=== PATIENT | male | born 1960 | race Caucasian/White ===

== ENCOUNTER 2018-01-14 07:09 | Inpatient (IN) | payer OTHER ==
[2018-01-14 07:21] VITALS: BMI 25.0
--- NOTE | 2018-01-14 07:41 | PDOC ---
History of Present Illness - General History Source: Patient Exam Limitations: No Limitations - History of Present Illness Initial Comments: 01/14/18 07:30 56yo M with history of COPD and smoking 1ppd for about 30 years who developed general malaise about 2 weeks ago. At that time he started to have some generalized aches most notability in his stress-bearing joints and developed a productive cough with some noted streaks of blood. Pt reports having some slight shortness of breath in general, but not in distress. Pt reported thinking his initial symptoms were a viral infection, however due to it's sustained course he wanted to come in for further evaluation. Pt reports smoking both marijuana and tobacco for the past 30 years around 1 pack per day. He also reports being in penitentiary recently and underwent a flu vaccine and PPD testing which was negative. Pt denies any overt sick contacts. Pt also endorses developing two sensitive to palpation lumps on his anterior chest wall around this time which he noticed while in the shower. Pt denies any rhinorrhea, sore throat, CP/discomfort, abdominal pain, dysuria, polyuria, night sweats, recent weight changes. MHx: COPD Surg: R inguinal hernia repair FamHx: HTN in both parents, Lung Ca in grandmother Soc: + smoking tobacco and marijuana as above, occasional alcohol Allergies: NKDA Meds/supplements/nutrients: None <Garcia Delgado - Last Filed: 01/14/18 10:09> - General History Source: Patient Exam Limitations: No Limitations <Ananda Watson - Last Filed: 01/14/18 10:29> - General Chief Complaint: Cold Symptoms Stated Complaint: FLU-LIKE SYMPTOMS Time Seen by Provider: 01/14/18 07:28 Past History - Past Medical History COPD: Yes - Surgical History Abdominal Surgery: Yes (rt ing hernia) - Family Disease History Family Disease History: Heart Disease: Father, Mother, Other: Grandparents ( Lung Ca) - Suicide/Smoking/Psychosocial Hx Smoking History: Current every day smoker Have you smoked in the past 12 months: Yes Number of Cigarettes Smoked Daily: 20 Information on smoking cessation initiated: Yes 'Breaking Loose' booklet given: 01/14/18 Hx Alcohol Use: No Drug/Substance Use Hx: Yes (renard) Substance Use Type: None <Garcia Delgado - Last Filed: 01/14/18 10:09> <Ananda Watson - Last Filed: 01/14/18 10:29> - Past Medical History Allergies/Adverse Reactions: Allergies Allergy/AdvReac Type Severity Reaction Status Date / Time No Known Allergies Allergy Verified 01/14/18 07:15 Review of Systems - Review of Systems Constitutional: Yes: Malaise, Weight Stable. No: Chills, Fever, Loss of Appetite, Night Sweats HEENTM: Yes: See HPI Respiratory: Yes: See HPI, Cough Cardiac (ROS): No: Chest Pain, Edema, Palpitations ABD/GI: No: Constipated, Diarrhea, Nausea, Vomiting : No: Dysuria, Frequency Integumentary: Yes: See HPI, Lumps. No: Change in Color Hematologic/Lymphatic: No: Blood Clots, Easy Bleeding <Garcia Delgado - Last Filed: 01/14/18 10:09> - Review of Systems Able to Perform ROS?: Yes Comments:: A complete review of 10 out of 10 review of systems is taken and is negative apart from what is previously mentioned below and in the HPI. <Ananda Watson - Last Filed: 01/14/18 10:29> *Physical Exam - Vital Signs Last Vital Signs Temp Pulse Resp BP Pulse Ox 98.3 F 100 H 18 143/80 100 01/14/18 07:16 01/14/18 07:16 01/14/18 07:16 01/14/18 07:16 01/14/18 07:16 - Physical Exam Comments: 01/14/18 08:03 GEN: NAD, awake, alert and oriented x3, laying in bed HEENT: EOMI, LYNDA, sclera anicteric, no erythema or plaques noted in the posterior oropharynx, nasal turbinates normal NECK: No JVD, no lymphadenopathy appreciated, no thyromegaly appreciated LUNGS: Distant sounds with some wheezing noted bibasillary, no rhonchi, no rales , on RA 100% SpO2 CARDIAC: Tachycardic with regular rhythm, no murmurs appreciated, S1 and S2 normal CHEST: Skin intact, no skin changes noted, R moveable rubber sensitive mass noted 8'clock near areola, L moveable rubbery sensitive mass noted 3 o'clock position, No axillary lymphadenopathy appreciated ABD: Soft, normoactive BS, no bruits auscultated, nontender, nondistended, no guarding, no inguinal lymphadenopathy appreciated EXT: No edema, warm, 2+ DP pulses NEURO: Nonfocal, normal speech, facial symmetry at base, gait not observed <Garcia Delgado - Last Filed: 01/14/18 10:09> - Vital Signs Last Vital Signs Temp Pulse Resp BP Pulse Ox 98.3 F 100 H 18 143/80 100 01/14/18 07:16 01/14/18 07:16 01/14/18 07:16 01/14/18 07:16 01/14/18 07:16 <Ananda Watson - Last Filed: 01/14/18 10:29> Heart Score/ECG Review #1 ECG reviewed & interpreted by me at: 08:29 General ECG Interpretation: Sinus Rhythm, Normal Rate, Normal Intervals, No acute ischemic changes 01/14/18 08:29 [id number] normal axis, normal R wave progression, <Garcia Delgado - Last Filed: 01/14/18 10:09> ED Treatment Course - LABORATORY CBC & Chemistry Diagram: 01/14/18 08:02 01/14/18 08:02 <Garcia Delgado - Last Filed: 01/14/18 10:09> - LABORATORY CBC & Chemistry Diagram: 01/14/18 08:02 01/14/18 08:02 - Medications Given in the ED: ED Medications Discontinued Medications Generic Name Dose Route Start Last Admin Trade Name Freq PRN Reason Stop Dose Admin Albuterol Sulfate 1 amp 01/14/18 07:53 01/14/18 08:12 Ventolin 0.083% Nebulizer Soln - NEB 01/14/18 07:54 1 amp ONCE ONE Administration <Ananda Watson - Last Filed: 01/14/18 10:29> Medical Decision Making - Medical Decision Making 01/14/18 07:47 57yo M with history of COPD who reports some productive cough with hemoptysis and generalized body aches Ddx: r/o URI including flu despite end of season this year, r/o lung Ca, r/o TB --cbc --cmp --CXR pa and lat --EKG --Trop I x1 --Albuterol tx x1 for wheezing heard on auscultation 01/14/18 08:34 EKG NSR without any acute changes noted CBC normal WBC 11,000's 01/14/18 08:40 CXR - RUL infiltrate with R hilar adenopathy noted with some chronic degenerative changes noted Given risk factors for TB in setting of hemoptysis and imprisonment will consult ID for guidance --BCx --AFB sputum --Iso Precautions 01/14/18 09:[address] Castro who accepted pt for r/o TB admission --Consulted Dr. Velazquez for ID guidance 01/14/18 10:[address] Velazquez --Requests vanc/zosyn administration --Requests HIV testing <Garcia Delgado - Last Filed: 01/14/18 10:09> - Medical Decision Making The patient is a 57 year old male with a significant past medical history of COPD who presents to the emergency department complaining of productive cough which started approximately 3 days ago. Will take labs, check Troponin, ECG, and take a Chest scan. <Ananda Watson - Last Filed: 01/14/18 10:29> *DC/Admit/Observation/Transfer - Discharge Dispostion Admit: Yes <Garcia Delgado - Last Filed: 01/14/18 10:09> <Ananda Watson - Last Filed: 01/14/18 10:29> Diagnosis at time of Disposition: Hemoptysis - Discharge Dispostion Condition at time of disposition: Stable
[2018-01-14] MEDS ORDERED: ALBUTEROL SO4 0.083% IH SOL 2.5 MG/3 ML VIAL.NEB. NEB ONE ×2 (07:53→07:54)
[2018-01-14 08:19] LABS: HEMATOCRIT 39.7 % (35.4-49); MCHC 32.8 g/dl (32.0-35.9); MEAN CELL VOLUME 82.6 fl (80-96); MEAN PLT VOLUME 7.7 fl (7.5-11.1); PLATELET COUNT 405 K/MM3 (134-434); RDW 15.7 % (11.9-15.9); WHITE BLOOD COUNT 11.3 K/mm3 (4.0-10.0)
[2018-01-14 08:38] LABS: ANION GAP 7 (8-16); BILIRUBIN,TOTAL 0.3 mg/dL (0.2-1.0); BLOOD UREA NITROGEN 12 mg/dL (7-18); CALCIUM 8.4 mg/dL (8.5-10.1); CHLORIDE 106 mmol/L (98-107); CO2 25 mmol/L (21-32); CREATININE 0.9 mg/dL (0.7-1.3); GLUCOSE,RANDOM 145 mg/dL (74-106); POTASSIUM 3.9 mmol/L (3.5-5.1); SGOT/AST 11 U/L (15-37); SGPT/ALT 14 U/L (12-78); SODIUM 138 mmol/L (136-145); TOT PROT 6.5 g/dl (6.4-8.2)
[2018-01-14 08:41] LABS: ALK PHOS 106 U/L (45-117)
[2018-01-14] MEDS ORDERED: VANCOMYCIN 1,250 MG in DEXTROSE 5%-WATER - 250 ML IVPB ONE (10:03)
[2018-01-14] MEDS ORDERED: PIPERACILLIN/TAZOB 4.5 GM/100 ML PREMIX BAG IVPB ONE (10:04)
[2018-01-14] MEDS ORDERED: PIPERACILLIN/TAZOB 4.5 GM 4.5 GM in DEXTROSE 5%-WATER 100 ML IVPB ONE (10:15)
--- NOTE | 2018-01-14 10:25 | PDOC ---
Attending Attestation - HPI HPI: 01/14/18 10:29 The patient is a 57 year old male with a significant past medical history of COPD who presents to the emergency department complaining of productive cough which started approximately 3 days ago. The patient reports having an intermittent productive cough with blood streaked sputum. The patient reports having associated symptoms of runny nose, generalized weakness, as well as chest pain and dyspnea which is exacerbated through movement. The patient describes chest tightness occurs sporadically. He also admits to noticing lumps in his breasts 2 weeks ago. The patient reports being in long term recently. The patient denies any significant weight loss, sick contact, immobilization, headache and dizziness. Denies fevers, chills, nausea, vomiting, diarrhea, and constipation. Denies dysuria, frequency, urgency, and hematuria. Allergies: NKA Past surgical history: mandible, left knee, right inguinal hernia Social history: Patient admits to smoking a pack of cigarettes per day. Patient admits to smoking marijuana. No reported alcohol consumption. - Physicial Exam PE: 01/14/18 10:31 Vitals: Triage Vital signs reviewed General Appearance: no acute distress, well nourished well developed, Head: Atraumatic, normocephalic Eyes: Pupils equal reactive round, extraocular movement intact Nose: Nares patent bilaterally;no nasal congestion Throat: Posterior oropharynx without erythema, mucous membranes moist, Neck: Supple;No Nuchal rigidity Chest Wall: Nontender Cardiac: Regular rate and rhythm, no murmurs, no rubs, no gallops, Lungs: Clear to auscultation bilateral, good air movement bilaterally, Abdomen: Soft, nondistended, normal bowel sounds, nontender to palpation Rectal: Exam deferred Extremities: Full range of motion to all extremities, no cyanosis, clubbing, or edema Skin: Warm and dry, no rashes or lesions, no petechiae Psych: normal mood, normal affect <Ananda Watson - Last Filed: 01/14/18 10:29> - Resident Resident Name: Garcia Delgado - ED Attending Attestation I have performed the following: I have examined & evaluated the patient, The case was reviewed & discussed with the resident, I agree w/resident's findings & plan, Exceptions are as noted - Medical Decision Making 01/14/18 10:23 57 years old with several month history of generalized malaise now with hemoptysis cough no weight loss Chest x-ray demonstrated right upper lobe infiltrate given the patient was recently incarcerated with history of hemoptysis we will admit to medicine to rule out TB Vancomycin and Zosyn ordered Infectious disease Dr. Velazquez consulted We'll admit to Dr. Dong for further management. Patient placed on isolation. 01/14/18 14:52 <Chandler Villeda - Last Filed: 01/14/18 14:53>
[2018-01-14] MEDS ORDERED: VANCOMYCIN 1 GRAM (PRE-DOCKED) 1,000 MG/250 ML BAG IVPB ONE (10:34)
[2018-01-14] MEDS ORDERED: PIPERACILLIN/TAZOB 4.5 GM 4.5 GM/100 ML BAG IVPB ONE (12:24)
--- NOTE | 2018-01-14 15:10 | HP ---
Admitting History and Physical - Primary Care Physician PCP: Luiz Castro - Admission History of Present Illness: 57 year old male with a significant past medical history of COPD who presents to the emergency department complaining of productive cough which started approximately 3 days ago. The patient reports having an intermittent productive cough with blood streaked sputum. The patient reports having associated symptoms of runny nose, generalized weakness, as well as chest pain and dyspnea which is exacerbated through movement. The patient describes chest tightness occurs sporadically. He also admits to noticing lumps in his breasts 2 weeks ago. The patient reports being in shelter recently. The patient denies any significant weight loss, sick contact, immobilization, headache and dizziness. Denies fevers, chills, nausea, vomiting, diarrhea, and constipation. Denies dysuria, frequency, urgency, and hematuria. - Past Medical History Pulmonary: Yes: COPD - Smoking History Smoking history: Current every day smoker Have you smoked in the past 12 months: Yes Aproximately how many cigarettes per day: 20 - Alcohol/Substance Use Hx Alcohol Use: No Home Medications - Allergies Allergies/Adverse Reactions: Allergies Allergy/AdvReac Type Severity Reaction Status Date / Time No Known Allergies Allergy Verified 01/14/18 07:15 - Home Medications Home Medications: Ambulatory Orders Albuterol Sulfate Inhaler - [Ventolin Hfa Inhaler -] 1 - 2 inh PO Q4H PRN Physical Examination Vital Signs: Vital Signs Temperature 98.3 F 01/14/18 07:16 Pulse Rate 100 H 01/14/18 07:16 Respiratory Rate 18 01/14/18 07:16 Blood Pressure 143/80 01/14/18 07:16 O2 Sat by Pulse Oximetry (%) 100 01/14/18 07:16 Constitutional: Yes: No Distress HENT: Yes: Atraumatic Neck: Yes: Supple Cardiovascular: Yes: Regular Rate and Rhythm Respiratory: Yes: CTA Bilaterally, Rhonchi Gastrointestinal: Yes: Normal Bowel Sounds Extremities: Yes: WNL Neurological: Yes: Alert, Oriented Labs: CBC, BMP 01/14/18 08:02 01/14/18 08:02 Problem List - Problems (1) Hemoptysis Assessment/Plan: sputum for afb chest ct pulmonary and id consult monitor cbc Code(s): R04.2 - HEMOPTYSIS (2) COPD (chronic obstructive pulmonary disease) Assessment/Plan: duo nebs prn Code(s): J44.9 - CHRONIC OBSTRUCTIVE PULMONARY DISEASE, UNSPECIFIED Assessment/Plan Laboratory Tests 01/14/18 01/14/18 08:02 08:02 WBC 11.3 H RBC 4.80 Hgb 13.0 Hct 39.7 MCV 82.6 MCH 27.0 MCHC 32.8 RDW 15.7 Plt Count 405 MPV 7.7 Sodium 138 Potassium 3.9 Chloride 106 Carbon Dioxide 25 Anion Gap 7 L BUN 12 Creatinine 0.9 Creat Clearance w eGFR > 60 Random Glucose 145 H Calcium 8.4 L Total Bilirubin 0.3 AST 11 L ALT 14 Alkaline Phosphatase 106 Troponin I < 0.02 Total Protein 6.5 Albumin 3.0 L Active Medications Generic Name Dose Route Start Last Admin Trade Name Freq PRN Reason Stop Dose Admin Albuterol/Ipratropium 1 amp 01/15/18 12:00 01/16/18 12:11 Duoneb - NEB Not Given RQID JAYSHREE
--- NOTE | 2018-01-14 16:57 | CON.ID ---
Consult Consult Specialty:: infectious diseases Referred by:: Reason for Consultation:: pneumonia,r/o tb - History of Present Illness Chief Complaint: sob cough weakness History of Present Illness: 56yo M with history of COPD and smoking 1ppd for about 30 years who developed general malaise about 2 weeks ago. At that time he started to have some generalized aches most notability in his stress-bearing joints and developed a productive cough with some noted streaks of blood. Pt reports having some slight shortness of breath in general, but not in distress. patient is homeless and lives in the car,he was also incarcerated for a very brief time and works as construction contractor. He initially did not want to come to the hospital but decided to come in because he was not getting better. Pt reports smoking both marijuana and tobacco for the past 30 years around 1 pack per day. denies he has ever used iv drugs. He also reports being in skilled nursing recently and underwent a flu vaccine and PPD testing which was negative. Pt denies any overt sick contacts. denies any other symptoms - History Source History Provided By: Patient Limitations to Obtaining History: No Limitations - Alcohol/Substance Use Hx Alcohol Use: Yes (OCCASIONAL) - Smoking History Smoking history: Current every day smoker Have you smoked in the past 12 months: Yes Aproximately how many cigarettes per day: 20 Home Medications - Allergies Allergies/Adverse Reactions: Allergies Allergy/AdvReac Type Severity Reaction Status Date / Time No Known Allergies Allergy Verified 01/14/18 07:15 - Home Medications Home Medications: Ambulatory Orders Albuterol Sulfate Inhaler - [Ventolin Hfa Inhaler -] 1 - 2 inh PO Q4H PRN Review of Systems - Review of Systems Constitutional: reports: No Symptoms Eyes: reports: No Symptoms HENT: reports: No Symptoms Neck: reports: No Symptoms Cardiovascular: reports: No Symptoms Respiratory: reports: Hemoptysis, SOB, SOB on Exertion Gastrointestinal: reports: No Symptoms Genitourinary: reports: No Symptoms Musculoskeletal: reports: Muscle Weakness, Other Integumentary: reports: No Symptoms Neurological: reports: No Symptoms Endocrine: reports: No Symptoms Hematology/Lymphatic: reports: No Symptoms Physical Exam Vital Signs: Vital Signs Temperature 97.9 F 01/14/18 16:09 Pulse Rate 84 01/14/18 15:55 Respiratory Rate 16 01/14/18 15:55 Blood Pressure 116/84 01/14/18 15:55 O2 Sat by Pulse Oximetry (%) 97 01/14/18 15:55 Constitutional: Yes: Well Nourished, No Distress, Calm Eyes: Yes: Conjunctiva Clear Cardiovascular: Yes: Regular Rate and Rhythm Respiratory: Yes: Regular, Poor Air Entry (rt side), Rhonchi Gastrointestinal: Yes: Normal Bowel Sounds, Soft Musculoskeletal: Yes: WNL Extremities: Yes: WNL Neurological: Yes: Alert, Oriented Psychiatric: Yes: Alert, Oriented Labs: CBC, BMP 01/14/18 08:02 01/14/18 08:02 Imaging - Results Chest X-ray: Report Reviewed, Image Reviewed Cat Scan: Report Reviewed, Image Reviewed Assessment/Plan looking at the patient and his symptoms and his work history there are couple of things we have to worry about on is TB he is already being worked up for that also if patient has any malignancy or if he is ahving pneumonia r/o tb r/o malignancy pneumonia hemoptysis cough joint pain plan will start patient on abx await for all cx report await for tb test rest continue current mgmt pul going to follow
--- NOTE | 2018-01-14 23:49 | EKG ---
Test Reason : Blood Pressure : / mmHG Vent. Rate : 090 BPM Atrial Rate : 090 BPM P-R Int : 144 ms QRS Dur : 072 ms QT Int : 372 ms P-R-T Axes : 038 -01 072 degrees QTc Int : 455 ms NORMAL SINUS RHYTHM NONSPECIFIC T WAVE ABNORMALITY ABNORMAL ECG WHEN COMPARED WITH ECG OF 14-JUN-2000 09:10, VENT. RATE HAS INCREASED BY 33 BPM Confirmed by FAVIO GROVER MD ([id number]) on 01/14/2018 11:48:45 PM Referred By: Confirmed By:FAVIO GROVER MD
[2018-01-15 08:23] LABS: EOS % 4.2 % (0-4.5); HEMATOCRIT 40.7 % (35.4-49); HEMOGLOBIN 13.5 GM/dL (11.7-16.9); LYMPH % 32.4 % (8-40); MCH 27.5 pg (25.7-33.7); MCHC 33.2 g/dl (32.0-35.9); MEAN CELL VOLUME 82.8 fl (80-96); MEAN PLT VOLUME 8.4 fl (7.5-11.1); MONO % 7.8 % (3.8-10.2); NEUT % 54.6 % (42.8-82.8); PLATELET COUNT 434 K/MM3 (134-434); RBC 4.91 M/mm3 (4.00-5.60); RDW 15.8 % (11.9-15.9); WHITE BLOOD COUNT 7.9 K/mm3 (4.0-10.0)
[2018-01-15 08:40] LABS: ALBUMIN 3.1 g/dl (3.4-5.0); ANION GAP 9 (8-16); BLOOD UREA NITROGEN 14 mg/dL (7-18); CALCIUM 8.9 mg/dL (8.5-10.1); CHLORIDE 105 mmol/L (98-107); CO2 26 mmol/L (21-32); GLUCOSE,RANDOM 99 mg/dL (74-106); POTASSIUM 4.3 mmol/L (3.5-5.1); SODIUM 140 mmol/L (136-145)
[2018-01-15 08:43] LABS: ALK PHOS 107 U/L (45-117); BILIRUBIN,TOTAL 0.5 mg/dL (0.2-1.0); CREATININE 0.7 mg/dL (0.7-1.3); SGOT/AST 10 U/L (15-37); SGPT/ALT 10 U/L (12-78); TOT PROT 6.6 g/dl (6.4-8.2)
--- NOTE | 2018-01-15 11:55 | PN ---
Progress Note (short form) - Note Progress Note: PULMONARY CONSULTATION DICTATED 01/15/18 IMP HEMOPTYSIS R/O BRONCHOGENIC CA,?PNEUMONIA R HILAR FULLNESS R/O CA,ADENOATHY COPD PLAN ABX INHALED BRONCHODILATORS O2 CHEST CT SPUTUM C+S QUANTIFY HEMOPTYSIS POSSIBLE FLEXIBLE BRONCHOSCOPY PENDING CT FINDINGS DR GONZALEZ Problem List - Problems (1) COPD (chronic obstructive pulmonary disease) Code(s): J44.9 - CHRONIC OBSTRUCTIVE PULMONARY DISEASE, UNSPECIFIED (2) Joint pain Code(s): M25.50 - PAIN IN UNSPECIFIED JOINT (3) Pneumonia Code(s): J18.9 - PNEUMONIA, UNSPECIFIED ORGANISM (4) Hemoptysis Code(s): R04.2 - HEMOPTYSIS
--- NOTE | 2018-01-15 13:17 | CONS ---
DATE OF CONSULTATION: 01/15/2018 REFERRING PHYSICIAN: Luiz Castro MD The patient is a 57-year-old white male with past medical history of COPD for approximately 10-15 years with longstanding history of tobacco use 1 pack per day since age 14, currently still smoking, admitted to [facility] with complaint of generalized aches and pains. He also states he has had intermittent hemoptysis for the past 3 months. He did not seek medical attention. He denies any fevers, chills. Does have occasional sweats. Denies any chest pains. He states also that he feels 2 masses under his breasts a He was previously employed as a [employer]. Of note is he was recently in snf and apparently underwent PPD testing which was negative, and he underwent influenza vaccine. He denies any weight loss or night sweats. Patient presented to the emergency room with the above. In the ER, he had a chest x-ray performed which revealed right hilar fullness and a possible right mid-lung field infiltrate. He was placed on broad-spectrum antibiotics. Patient denies any recent travel. There is no history of DVT or PE in the past. PAST MEDICAL HISTORY: Again includes COPD. PAST SURGICAL HISTORY: He denies any surgery. REVIEW OF SYSTEMS: Positive generalized weakness. Positive generalized joint pains. Positive hemoptysis. No chest pain. No palpitations. Positive dyspnea on exertion. No wheezing. No weight loss or night sweats. No abdominal pain. No lower extremity edema. CURRENT MEDICATIONS: Include piperacillin x1. PHYSICAL EXAMINATION: General: The patient is a well-developed, well-nourished male, awake, alert, in no acute distress. Vital Signs: He is afebrile. Blood pressure 132/66, respiratory rate is 18, O2 saturation is 95% on room air. HEENT: Normocephalic, atraumatic. Neck: Supple. Heart: Regular. S1, S2. Chest: A few crackles in the right mid-lung field. Abdomen: Soft. Bowel sounds are positive. Extremities: No cyanosis or edema. LABORATORIES: WBC is 7.9, hemoglobin 13.5, hematocrit 40.7 with a platelet count of 434,000. BUN 14, creatinine 0.7. Chest x-ray as noted earlier. IMPRESSION: 1. Hemoptysis, r/o bronchogenic carcinoma with evidence of right hilar fullness and longstanding history of tobacco use, rule out possible pneumonia. 2. History of chronic obstructive pulmonary disease. PLAN: Broad-spectrum antibiotics, inhaled bronchodilators. CT scan of the chest. Sputum for culture and sensitivity, cytology. Possible flexible bronchoscopy pending results of CAT scan of the chest. ORLY GONZALEZ M.D. BRUNA/[id number] MTDD
--- NOTE | 2018-01-15 15:05 | PN ---
Progress Note, Physician History of Present Illness: feeling better cough less - Current Medication List Current Medications: Active Medications Albuterol/Ipratropium (Duoneb -) 1 amp NEB RQID JAYSHREE - Objective Vital Signs: Vital Signs Temperature 98.2 F 01/14/18 19:00 Pulse Rate 66 01/15/18 07:08 Respiratory Rate 18 01/15/18 07:08 Blood Pressure 132/66 01/15/18 07:08 O2 Sat by Pulse Oximetry (%) 95 01/15/18 07:08 Constitutional: Yes: No Distress, Calm Cardiovascular: Yes: Regular Rate and Rhythm Respiratory: Yes: Regular, Poor Air Entry, Other Gastrointestinal: Yes: Normal Bowel Sounds, Soft Musculoskeletal: Yes: WNL Extremities: Yes: WNL Neurological: Yes: Alert, Oriented Psychiatric: Yes: Alert, Oriented Labs: CBC, BMP 01/15/18 07:05 01/15/18 07:05 Assessment/Plan stilla waiting finall cx results r/o tb r/o malignancy pneumonia hemoptysis cough joint pain plan continue abx await for all cx report await for tb test rest continue current mgmt pul going to follow
--- NOTE | 2018-01-15 18:14 | PN ---
Progress Note, Physician - Current Medication List Current Medications: Active Medications Albuterol/Ipratropium (Duoneb -) 1 amp NEB RQID JAYSHREE - Objective Vital Signs: Vital Signs Temperature 98.2 F 01/14/18 19:00 Pulse Rate 84 01/15/18 10:40 Respiratory Rate 20 01/15/18 10:40 Blood Pressure 120/70 01/15/18 10:40 O2 Sat by Pulse Oximetry (%) 95 01/15/18 07:08 Constitutional: Yes: No Distress HENT: Yes: Atraumatic Neck: Yes: Supple Cardiovascular: Yes: Regular Rate and Rhythm Respiratory: Yes: CTA Bilaterally Gastrointestinal: Yes: Normal Bowel Sounds Extremities: Yes: WNL Neurological: Yes: Alert, Oriented Labs: CBC, BMP 01/15/18 07:05 01/15/18 07:05 Problem List - Problems (1) Hemoptysis Assessment/Plan: sputum for afb chest ct..done a pulmonary and id consult monitor cbc Code(s): R04.2 - HEMOPTYSIS (2) COPD (chronic obstructive pulmonary disease) Assessment/Plan: duo nebs prn Code(s): J44.9 - CHRONIC OBSTRUCTIVE PULMONARY DISEASE, UNSPECIFIED (3) Pneumonia Assessment/Plan: id on board Code(s): J18.9 - PNEUMONIA, UNSPECIFIED ORGANISM
[2018-01-16] MEDS: ALBUTEROL SO4 2.5/IPRATROPIUM 0.5 INH SOL 3 ML VIAL.NEB. NEB SCH ×5 (03:14→19:24)
--- NOTE | 2018-01-16 10:46 | PN ---
Progress Note, Physician History of Present Illness: PULMONARY ALERT,NO DISTRESS,+ COUGH,-HEMOPTYSIS,CHEST CT R HILAR MASS - Current Medication List Current Medications: Active Medications Albuterol/Ipratropium (Duoneb -) 1 amp NEB RQID JAYSHREE Last Admin: 01/16/18 08:03 Dose: Not Given - Objective Vital Signs: Vital Signs Temperature 98.2 F 01/16/18 07:40 Pulse Rate 70 01/16/18 07:40 Respiratory Rate 17 01/16/18 07:40 Blood Pressure 142/83 01/16/18 07:40 O2 Sat by Pulse Oximetry (%) 95 01/16/18 07:40 Constitutional: Yes: Well Nourished, Calm Eyes: Yes: WNL HENT: Yes: WNL Neck: Yes: WNL Cardiovascular: Yes: Regular Rate and Rhythm, S1, S2 Respiratory: Yes: Diminished Gastrointestinal: Yes: Normal Bowel Sounds, Soft Extremities: Yes: WNL Edema: No - ....Imaging Cat Scan: Report Reviewed, Image Reviewed Problem List - Problems (1) COPD (chronic obstructive pulmonary disease) Code(s): J44.9 - CHRONIC OBSTRUCTIVE PULMONARY DISEASE, UNSPECIFIED (2) Joint pain Code(s): M25.50 - PAIN IN UNSPECIFIED JOINT (3) Pneumonia Code(s): J18.9 - PNEUMONIA, UNSPECIFIED ORGANISM (4) Hemoptysis Code(s): R04.2 - HEMOPTYSIS Assessment/Plan IMP HEMOPTYSIS LIKELY BRONCHOGENIC CA R HILAR FULLNESS LIKELY BRONCHOGENIC CA CA COPD PLAN ABX INHALED BRONCHODILATORS O2 QUANTIFY HEMOPTYSIS FLEXIBLE BRONCHOSCOPY IN AM DR GONZALEZ Problem List - Problems (1) COPD (chronic obstructive pulmonary disease) Code(s): J44.9 - CHRONIC OBSTRUCTIVE PULMONARY DISEASE, UNSPECIFIED (2) Joint pain Code(s): M25.50 - PAIN IN UNSPECIFIED JOINT (3) Pneumonia Code(s): J18.9 - PNEUMONIA, UNSPECIFIED ORGANISM (4) Hemoptysis Code(s): R04.2 - HEMOPTYSIS
[2018-01-16 13:58] LABS: INR 1.17 (0.82-1.09); PROTHROMBIN TIME (PATIENT) 13.2 SEC (9.98-11.88)
--- NOTE | 2018-01-16 14:54 | PN ---
Progress Note, Physician History of Present Illness: patient feeling better still with cough afb results negative so far patient for bronch no complaints - Current Medication List Current Medications: Active Medications Albuterol/Ipratropium (Duoneb -) 1 amp NEB RQID [facility] Last Admin: 01/16/18 12:11 Dose: Not Given - Objective Vital Signs: Vital Signs Temperature 97.9 F 01/16/18 14:17 Pulse Rate 72 01/16/18 14:17 Respiratory Rate 19 01/16/18 14:17 Blood Pressure 144/87 01/16/18 14:17 O2 Sat by Pulse Oximetry (%) 96 01/16/18 11:59 Constitutional: Yes: No Distress, Calm Cardiovascular: Yes: Regular Rate and Rhythm Respiratory: Yes: Regular, Poor Air Entry Gastrointestinal: Yes: Normal Bowel Sounds, Soft Musculoskeletal: Yes: WNL Extremities: Yes: WNL Neurological: Yes: Alert, Oriented Psychiatric: Yes: Alert, Oriented Labs: CBC, BMP 01/15/18 07:05 01/15/18 07:05 INR, PTT INR 1.17 (0.82-1.09) H 01/16/18 13:07 Assessment/Plan Problem List - Problems (1) COPD (chronic obstructive pulmonary disease) Code(s): J44.9 - CHRONIC OBSTRUCTIVE PULMONARY DISEASE, UNSPECIFIED (2) Joint pain Code(s): M25.50 - PAIN IN UNSPECIFIED JOINT (3) Pneumonia Code(s): J18.9 - PNEUMONIA, UNSPECIFIED ORGANISM (4) Hemoptysis Code(s): R04.2 - HEMOPTYSIS plan await for hiv continue abx bronch rest as per primary team patient looks better
--- NOTE | 2018-01-16 17:25 | PN ---
Progress Note, Physician - Current Medication List Current Medications: Active Medications Albuterol/Ipratropium (Duoneb -) 1 amp NEB RQID [facility] Last Admin: 01/16/18 12:11 Dose: Not Given - Objective Vital Signs: Vital Signs Temperature 97.9 F 01/16/18 14:17 Pulse Rate 72 01/16/18 14:17 Respiratory Rate 19 01/16/18 14:17 Blood Pressure 144/87 01/16/18 14:17 O2 Sat by Pulse Oximetry (%) 96 01/16/18 11:59 Constitutional: Yes: No Distress HENT: Yes: Atraumatic Neck: Yes: Supple Cardiovascular: Yes: Regular Rate and Rhythm Respiratory: Yes: CTA Bilaterally Gastrointestinal: Yes: Normal Bowel Sounds Extremities: Yes: WNL Neurological: Yes: Alert, Oriented Labs: CBC, BMP 01/15/18 07:05 01/15/18 07:05 INR, PTT INR 1.17 (0.82-1.09) H 01/16/18 13:07 Problem List - Problems (1) Hemoptysis Assessment/Plan: sputum afb negative to date for bronch per pulmonary Code(s): R04.2 - HEMOPTYSIS (2) COPD (chronic obstructive pulmonary disease) Assessment/Plan: duo nebs prn Code(s): J44.9 - CHRONIC OBSTRUCTIVE PULMONARY DISEASE, UNSPECIFIED
[2018-01-17] MEDS: ALBUTEROL SO4 2.5/IPRATROPIUM 0.5 INH SOL 3 ML VIAL.NEB. NEB SCH ×4 (07:30→20:05)
--- NOTE | 2018-01-17 13:57 | PN ---
Progress Note (short form) - Note Progress Note: Bronchoscopy canceled due to anginal type pain. Patient reports that he has been experiencing this for the past few months, at rest and with exertion. Intake & Output 01/14/18 01/15/18 01/16/18 01/17/18 23:59 23:59 23:59 23:59 Intake Total 240 500 240 Balance 240 500 240 Weight 165 lb Last Vital Signs Temp Pulse Resp BP Pulse Ox 98.7 F 83 18 105/67 96 01/17/18 12:26 01/17/18 12:26 01/17/18 12:26 01/17/18 12:26 01/16/18 21:00 Constitutional: Yes: NAD Eyes: Yes: WNL HENT: Yes: WNL Neck: Yes: WNL Cardiovascular: Yes: Regular Rate and Rhythm, S1, S2 Respiratory: Yes: Diminished Gastrointestinal: Yes: Normal Bowel Sounds, Soft Extremities: Yes: clubbed fingers Edema: No - ....Imaging Cat Scan: Report Reviewed, Image Reviewed Problem List - Problems (1) COPD (chronic obstructive pulmonary disease) Code(s): J44.9 - CHRONIC OBSTRUCTIVE PULMONARY DISEASE, UNSPECIFIED (2) Joint pain Code(s): M25.50 - PAIN IN UNSPECIFIED JOINT (3) Pneumonia Code(s): J18.9 - PNEUMONIA, UNSPECIFIED ORGANISM (4) Hemoptysis Code(s): R04.2 - HEMOPTYSIS Assessment/Plan IMP HEMOPTYSIS LIKELY BRONCHOGENIC CA RIGHT HILAR FULLNESS LIKELY BRONCHOGENIC CA CA COPD PLAN CARDIOLOGY CONSULT CALLED (SEEMS LIKE MS PAIN) ABX INHALED BRONCHODILATORS O2 QUANTIFY HEMOPTYSIS BRONCHOSCOPY WHEN STABLE DR MONSON
--- NOTE | 2018-01-17 14:19 | PN ---
Progress Note, Physician History of Present Illness: bronchoscopy cancelled because of chest pain patient otherwise stable - Current Medication List Current Medications: Active Medications Albuterol/Ipratropium (Duoneb -) 1 amp NEB RQID [facility] Last Admin: 01/17/18 11:08 Dose: 1 amp - Objective Vital Signs: Vital Signs Temperature 98.7 F 01/17/18 12:26 Pulse Rate 83 01/17/18 12:26 Respiratory Rate 18 01/17/18 12:26 Blood Pressure 105/67 01/17/18 12:26 O2 Sat by Pulse Oximetry (%) 96 01/16/18 21:00 Constitutional: Yes: No Distress, Calm Cardiovascular: Yes: Regular Rate and Rhythm Respiratory: Yes: Regular, CTA Bilaterally Gastrointestinal: Yes: Normal Bowel Sounds, Soft Musculoskeletal: Yes: WNL Extremities: Yes: WNL Neurological: Yes: Alert, Oriented Psychiatric: Yes: Alert, Oriented Labs: CBC, BMP 01/15/18 07:05 01/15/18 07:05 INR, PTT INR 1.17 (0.82-1.09) H 01/16/18 13:07 Assessment/Plan Problem List - Problems (1) COPD (chronic obstructive pulmonary disease) Code(s): J44.9 - CHRONIC OBSTRUCTIVE PULMONARY DISEASE, UNSPECIFIED (2) Joint pain Code(s): M25.50 - PAIN IN UNSPECIFIED JOINT (3) Pneumonia Code(s): J18.9 - PNEUMONIA, UNSPECIFIED ORGANISM (4) Hemoptysis Code(s): R04.2 - HEMOPTYSIS plan await for hiv off of abx will watch bronch to r/o ca will monitor carefully
--- NOTE | 2018-01-17 17:19 | PN ---
Progress Note, Physician History of Present Illness: feeling good now - Current Medication List Current Medications: Active Medications Albuterol/Ipratropium (Duoneb -) 1 amp NEB RQID [facility] Last Admin: 01/17/18 16:15 Dose: 1 amp - Objective Vital Signs: Vital Signs Temperature 98.7 F 01/17/18 12:26 Pulse Rate 83 01/17/18 12:26 Respiratory Rate 18 01/17/18 12:26 Blood Pressure 105/67 01/17/18 12:26 O2 Sat by Pulse Oximetry (%) 96 01/16/18 21:00 Constitutional: Yes: No Distress HENT: Yes: Atraumatic Neck: Yes: Supple Cardiovascular: Yes: Regular Rate and Rhythm Respiratory: Yes: CTA Bilaterally Gastrointestinal: Yes: Normal Bowel Sounds Extremities: Yes: WNL Neurological: Yes: Alert, Oriented Labs: CBC, BMP 01/15/18 07:05 01/15/18 07:05 INR, PTT INR 1.17 (0.82-1.09) H 01/16/18 13:07 Problem List - Problems (1) Hemoptysis Assessment/Plan: sputum afb negative to date bronch per pulmonary...cancelled due to chest discomfort Code(s): R04.2 - HEMOPTYSIS (2) COPD (chronic obstructive pulmonary disease) Assessment/Plan: duo nebs prn Code(s): J44.9 - CHRONIC OBSTRUCTIVE PULMONARY DISEASE, UNSPECIFIED
[2018-01-17 20:36] LABS: BASO % 0.4 % (0-2.0); EOS % 3.2 % (0-4.5); HEMATOCRIT 38.4 % (35.4-49); HEMOGLOBIN 12.9 GM/dL (11.7-16.9); LYMPH % 28.6 % (8-40); MCH 27.8 pg (25.7-33.7); MCHC 33.6 g/dl (32.0-35.9); MEAN CELL VOLUME 82.7 fl (80-96); MEAN PLT VOLUME 8.1 fl (7.5-11.1); MONO % 9.3 % (3.8-10.2); NEUT % 58.5 % (42.8-82.8); PLATELET COUNT 444 K/MM3 (134-434); RBC 4.64 M/mm3 (4.00-5.60); RDW 15.7 % (11.9-15.9); WHITE BLOOD COUNT 8.4 K/mm3 (4.0-10.0)
[2018-01-17 21:09] LABS: ALBUMIN 3.2 g/dl (3.4-5.0); ALK PHOS 105 U/L (45-117); ANION GAP 9 (8-16); BLOOD UREA NITROGEN 16 mg/dL (7-18); CALCIUM 8.5 mg/dL (8.5-10.1); CHLORIDE 104 mmol/L (98-107); CO2 26 mmol/L (21-32); CREATININE 0.9 mg/dL (0.7-1.3); GLUCOSE,RANDOM 116 mg/dL (74-106); POTASSIUM 4.1 mmol/L (3.5-5.1); SGOT/AST 11 U/L (15-37); SGPT/ALT 17 U/L (12-78); SODIUM 139 mmol/L (136-145)
[2018-01-17 21:22] LABS: BILIRUBIN,TOTAL < 0.1 mg/dL (0.2-1.0)
[2018-01-18 07:44] LABS: HEMATOCRIT 40.7 % (35.4-49); HEMOGLOBIN 13.4 GM/dL (11.7-16.9); MCH 27.4 pg (25.7-33.7); MEAN CELL VOLUME 83.1 fl (80-96); MEAN PLT VOLUME 8.2 fl (7.5-11.1); PLATELET COUNT 438 K/MM3 (134-434); RDW 15.8 % (11.9-15.9); WHITE BLOOD COUNT 7.9 K/mm3 (4.0-10.0)
[2018-01-18 08:20] LABS: ANION GAP 8 (8-16); BLOOD UREA NITROGEN 16 mg/dL (7-18); CALCIUM 8.7 mg/dL (8.5-10.1); CHLORIDE 105 mmol/L (98-107); CO2 27 mmol/L (21-32); CREATININE 0.8 mg/dL (0.7-1.3); GLUCOSE,RANDOM 109 mg/dL (74-106); POTASSIUM 4.2 mmol/L (3.5-5.1); SODIUM 140 mmol/L (136-145)
[2018-01-18] MEDS: ALBUTEROL SO4 2.5/IPRATROPIUM 0.5 INH SOL 3 ML VIAL.NEB. NEB SCH ×4 (08:35→21:24)
--- NOTE | 2018-01-18 12:45 | CON.CARD ---
Consult Consult Specialty:: Cardiology Referred by:: Luiz Castro MD Reason for Consultation:: Pre-procedure cardiovascular evaluation - History of Present Illness Chief Complaint: Hemoptysis History of Present Illness: 56yo M with history of COPD and smoking 1ppd for about 30 years, homelessness presented with hemoptysis, general malaise, generalized aches most notability in his stress-bearing joints and dyspnea. Evaluation incuded chest CT demonstrating likely bronchogenic CA, planned for FOB but postponed when patient reported retrosternal chest pressure. Patient reports non-exertional component, usually happens when he's supine of stable pattern since last September, improved somewhat after forced cough, denies palpitations, orthopnea, PND, LE edema, near or true syncope or MITCHELL worse than baseline. Exercise capacity > 4 METS. - Past Medical History Pulmonary: Yes: COPD - Alcohol/Substance Use Hx Alcohol Use: No - Smoking History Smoking history: Current every day smoker Have you smoked in the past 12 months: Yes Aproximately how many cigarettes per day: 20 Home Medications - Allergies Allergies/Adverse Reactions: Allergies Allergy/AdvReac Type Severity Reaction Status Date / Time No Known Allergies Allergy Verified 01/14/18 07:15 - Home Medications Home Medications: Ambulatory Orders Albuterol Sulfate Inhaler - [Ventolin Hfa Inhaler -] 1 - 2 inh PO Q4H PRN Review of Systems - Review of Systems Cardiovascular: reports: Chest Pain Respiratory: reports: Hemoptysis Vital Signs: Vital Signs Temperature 98.2 F 01/18/18 09:00 Pulse Rate 83 01/18/18 09:00 Respiratory Rate 18 01/18/18 09:00 Blood Pressure 114/84 01/18/18 09:00 O2 Sat by Pulse Oximetry (%) 95 01/18/18 09:00 Constitutional: Yes: No Distress, Calm, Thin Neck: Yes: Supple Respiratory: Yes: Regular, Diminished Gastrointestinal: Yes: Normal Bowel Sounds, Soft Cardiovascular: Yes: Regular Rate and Rhythm JVD: No Carotid Bruit: No Heart Sounds: Yes: S1, S2 Murmur: Yes: Systolic Murmur, Grade 1 Edema: No - Other Data Labs, Other Data: CBC, BMP 01/18/18 06:17 01/18/18 06:17 INR, PTT INR 1.17 (0.82-1.09) H 01/16/18 13:07 Troponin, BNP 01/17/18 20:05 Troponin I < 0.02 Troponin, BNP 01/17/18 20:05 Troponin I < 0.02 NSR @ 90 nonspec T changes Imaging - Results Cat Scan: Report Reviewed (RUL mass and hilar LAD) Problem List - Problems (1) Atypical chest pain Code(s): R07.89 - OTHER CHEST PAIN (2) COPD (chronic obstructive pulmonary disease) Code(s): J44.9 - CHRONIC OBSTRUCTIVE PULMONARY DISEASE, UNSPECIFIED Qualifiers: COPD type: unspecified COPD Qualified Code(s): J44.9 - Chronic obstructive pulmonary disease, unspecified (3) Hemoptysis Code(s): R04.2 - HEMOPTYSIS (4) Mass of upper lobe of right lung Code(s): R91.8 - OTHER NONSPECIFIC ABNORMAL FINDING OF LUNG FIELD (5) Pre-procedural cardiovascular examination Code(s): Z01.810 - ENCOUNTER FOR PREPROCEDURAL CARDIOVASCULAR EXAMINATION Assessment/Plan 01/18/2018 Echo: Normal LV size and fxn, tr-mild MR, TR, mild AL 1. Chest pain syndrome with atypical features 2. Pre-procedure cardiovascular evaluration 3. Hemoptysis with RUL and hilar mass suspicious for bronchogenic carcinoma 4. COPD P:1. Given absence of symptoms of acute coronary syndrome, decompensated CHF and malignant arrhythmia, > 4 Mets exercise capacity and low risk procedure, may proceed with fiberoptic bronchoscopy from CV-standpoint, will schedule ETT to evaluate exercise capacity and exclude subclinical ischemia in meantime 2. BD, O2, empiric abx course as you are 3. Thank you for consultative opportunity
--- NOTE | 2018-01-18 14:48 | PN ---
Progress Note, Physician History of Present Illness: doing well no issues awaiting for bronch cardio on case - Current Medication List Current Medications: Active Medications Albuterol/Ipratropium (Duoneb -) 1 amp NEB RQID [facility] Last Admin: 01/18/18 12:39 Dose: 1 amp - Objective Vital Signs: Vital Signs Temperature 98.3 F 01/18/18 13:10 Pulse Rate 92 H 01/18/18 13:10 Respiratory Rate 18 01/18/18 13:10 Blood Pressure 146/76 01/18/18 13:10 O2 Sat by Pulse Oximetry (%) 95 01/18/18 09:00 Constitutional: Yes: No Distress, Calm Cardiovascular: Yes: Regular Rate and Rhythm Respiratory: Yes: Regular, Poor Air Entry, Other Gastrointestinal: Yes: Normal Bowel Sounds, Soft Musculoskeletal: Yes: WNL Extremities: Yes: WNL Neurological: Yes: Alert, Oriented Psychiatric: Yes: Alert, Oriented Labs: CBC, BMP 01/18/18 06:17 01/18/18 06:17 INR, PTT INR 1.17 (0.82-1.09) H 01/16/18 13:07 Assessment/Plan Problem List - Problems (1) COPD (chronic obstructive pulmonary disease) Code(s): J44.9 - CHRONIC OBSTRUCTIVE PULMONARY DISEASE, UNSPECIFIED (2) Joint pain Code(s): M25.50 - PAIN IN UNSPECIFIED JOINT (3) Pneumonia Code(s): J18.9 - PNEUMONIA, UNSPECIFIED ORGANISM (4) Hemoptysis Code(s): R04.2 - HEMOPTYSIS plan hiv non reactive off of abx will watch bronch to r/o ca will monitor carefully
--- NOTE | 2018-01-18 15:11 | PN ---
Progress Note, Physician - Current Medication List Current Medications: Active Medications Albuterol/Ipratropium (Duoneb -) 1 amp NEB RQID [facility] Last Admin: 01/18/18 12:39 Dose: 1 amp - Objective Vital Signs: Vital Signs Temperature 98.3 F 01/18/18 13:10 Pulse Rate 92 H 01/18/18 13:10 Respiratory Rate 18 01/18/18 13:10 Blood Pressure 146/76 01/18/18 13:10 O2 Sat by Pulse Oximetry (%) 95 01/18/18 09:00 Constitutional: Yes: No Distress HENT: Yes: Atraumatic Neck: Yes: Supple Cardiovascular: Yes: Regular Rate and Rhythm Respiratory: Yes: CTA Bilaterally, Rhonchi Gastrointestinal: Yes: Normal Bowel Sounds Edema: No Peripheral Pulses WNL: Yes Neurological: Yes: Alert, Oriented Labs: CBC, BMP 01/18/18 06:17 01/18/18 06:17 INR, PTT INR 1.17 (0.82-1.09) H 01/16/18 13:07 Problem List - Problems (1) Hemoptysis Assessment/Plan: sputum afb negative to date no hemoptysis Code(s): R04.2 - HEMOPTYSIS (2) COPD (chronic obstructive pulmonary disease) Assessment/Plan: duo nebs prn Code(s): J44.9 - CHRONIC OBSTRUCTIVE PULMONARY DISEASE, UNSPECIFIED Qualifiers: COPD type: unspecified COPD Qualified Code(s): J44.9 - Chronic obstructive pulmonary disease, unspecified
[2018-01-18] MEDS: NICOTINE 21 MG/24 HOURS TOPICAL PATCH TD SCH (17:30)
[2018-01-19] MEDS: ALBUTEROL SO4 2.5/IPRATROPIUM 0.5 INH SOL 3 ML VIAL.NEB. NEB SCH ×4 (08:00→20:30)
[2018-01-19] MEDS: NICOTINE 21 MG/24 HOURS TOPICAL PATCH TD SCH (10:01)
--- NOTE | 2018-01-19 14:08 | PN ---
Progress Note, Physician History of Present Illness: Pt seen and examined. Remains afebrile, without respiratory distress. Only occasional cough, no recent hemoptysis. No specific complaints. - Current Medication List Current Medications: Active Medications Albuterol/Ipratropium (Duoneb -) 1 amp NEB RQID [facility] Last Admin: 01/19/18 11:20 Dose: 1 amp Nicotine (Nicoderm Patch -) 21 mg TD DAILY [facility] Last Admin: 01/18/18 17:30 Dose: 21 mg - Objective Vital Signs: Vital Signs Temperature 98.0 F 01/19/18 13:17 Pulse Rate 94 H 01/19/18 13:17 Respiratory Rate 18 01/19/18 13:17 Blood Pressure 138/82 01/19/18 13:17 O2 Sat by Pulse Oximetry (%) 96 01/19/18 09:00 Constitutional: Yes: No Distress, Calm Neck: Yes: Supple Cardiovascular: Yes: Regular Rate and Rhythm Respiratory: Yes: Diminished Gastrointestinal: Yes: Normal Bowel Sounds, Soft Genitourinary: Yes: WNL Extremities: Yes: WNL Neurological: Yes: Alert, Oriented Labs: CBC, BMP 01/18/18 06:17 01/18/18 06:17 INR, PTT INR 1.17 (0.82-1.09) H 01/16/18 13:07 - ....Imaging Cat Scan: Report Reviewed Problem List - Problems (1) COPD (chronic obstructive pulmonary disease) Code(s): J44.9 - CHRONIC OBSTRUCTIVE PULMONARY DISEASE, UNSPECIFIED Qualifiers: COPD type: unspecified COPD Qualified Code(s): J44.9 - Chronic obstructive pulmonary disease, unspecified (2) Hemoptysis Code(s): R04.2 - HEMOPTYSIS (3) Mass of upper lobe of right lung Code(s): R91.8 - OTHER NONSPECIFIC ABNORMAL FINDING OF LUNG FIELD (4) Pneumonia Code(s): J18.9 - PNEUMONIA, UNSPECIFIED ORGANISM Assessment/Plan 57 y.o. male with COPD/long time smoker, briefly incarcerated, undomiciled presented with c/o cough/hemoptysis RUL perihilar lesion r/o malignancy -- monitor off antibiotics, pt afebrile, without leukocytosis -- awaiting bronchoscopy
--- NOTE | 2018-01-19 17:00 | PN ---
Progress Note, Physician - Current Medication List Current Medications: Active Medications Albuterol/Ipratropium (Duoneb -) 1 amp NEB RQID [facility] Last Admin: 01/19/18 16:10 Dose: 1 amp Nicotine (Nicoderm Patch -) 21 mg TD DAILY [facility] Last Admin: 01/19/18 10:01 Dose: 21 mg - Objective Vital Signs: Vital Signs Temperature 98.5 F 01/19/18 16:57 Pulse Rate 99 H 01/19/18 16:57 Respiratory Rate 18 01/19/18 16:57 Blood Pressure 130/85 01/19/18 16:57 O2 Sat by Pulse Oximetry (%) 96 01/19/18 09:00 Constitutional: Yes: No Distress HENT: Yes: Atraumatic Neck: Yes: Supple Cardiovascular: Yes: Regular Rate and Rhythm Respiratory: Yes: CTA Bilaterally Gastrointestinal: Yes: Normal Bowel Sounds Extremities: Yes: WNL Edema: No Peripheral Pulses WNL: Yes Neurological: Yes: Alert, Oriented Labs: CBC, BMP 01/18/18 06:17 01/18/18 06:17 INR, PTT INR 1.17 (0.82-1.09) H 01/16/18 13:07 Problem List - Problems (1) Hemoptysis Assessment/Plan: sputum afb negative to date no hemoptysis Code(s): R04.2 - HEMOPTYSIS (2) COPD (chronic obstructive pulmonary disease) Assessment/Plan: duo nebs prn Code(s): J44.9 - CHRONIC OBSTRUCTIVE PULMONARY DISEASE, UNSPECIFIED Qualifiers: COPD type: unspecified COPD Qualified Code(s): J44.9 - Chronic obstructive pulmonary disease, unspecified (3) Atypical chest pain Assessment/Plan: for stress test on sunday Code(s): R07.89 - OTHER CHEST PAIN
[2018-01-20] MEDS: ALBUTEROL SO4 2.5/IPRATROPIUM 0.5 INH SOL 3 ML VIAL.NEB. NEB SCH (07:50)
[2018-01-20] MEDS: NICOTINE 21 MG/24 HOURS TOPICAL PATCH TD SCH ×2 (09:03→09:05)
--- NOTE | 2018-01-20 11:46 | PN ---
Progress Note (short form) - Note Progress Note: Breathing feels OK. No hemoptysis. Still with intermittent CP. Scheduled for stress test tomorrow. Intake & Output 01/17/18 01/18/18 01/19/18 01/20/18 23:59 23:59 23:59 23:59 Intake Total 480 1160 810 340 Balance 480 1160 810 340 Last Vital Signs Temp Pulse Resp BP Pulse Ox 98.3 F 75 20 115/56 94 L 01/20/18 06:00 01/20/18 06:00 01/20/18 06:00 01/20/18 06:00 01/19/18 22:00 Active Medications Albuterol/Ipratropium (Duoneb -) 1 amp NEB RQID [facility] Last Admin: 01/20/18 07:50 Dose: 1 amp Nicotine (Nicoderm Patch -) 21 mg TD DAILY [facility] Last Admin: 01/20/18 09:05 Dose: Not Given Constitutional: Yes: NAD Eyes: Yes: WNL HENT: Yes: WNL Neck: Yes: WNL Cardiovascular: Yes: Regular Rate and Rhythm, S1, S2 Respiratory: Yes: Diminished Gastrointestinal: Yes: Normal Bowel Sounds, Soft Extremities: Yes: clubbed fingers Edema: No Problem List - Problems (1) COPD (chronic obstructive pulmonary disease) Code(s): J44.9 - CHRONIC OBSTRUCTIVE PULMONARY DISEASE, UNSPECIFIED (2) Joint pain Code(s): M25.50 - PAIN IN UNSPECIFIED JOINT (3) Pneumonia Code(s): J18.9 - PNEUMONIA, UNSPECIFIED ORGANISM (4) Hemoptysis Code(s): R04.2 - HEMOPTYSIS Assessment/Plan IMP HEMOPTYSIS LIKELY BRONCHOGENIC CA RIGHT HILAR FULLNESS LIKELY BRONCHOGENIC CA CA COPD PLAN CARDIOLOGY WORKUP ONGOING ABX INHALED BRONCHODILATORS O2 QUANTIFY HEMOPTYSIS BRONCHOSCOPY AFTER CARDIAC WORKUP DR MONSON
--- NOTE | 2018-01-20 11:50 | PN ---
Progress Note, Physician History of Present Illness: Atypical chest pain yesterday, none today. - Current Medication List Current Medications: Active Medications Albuterol/Ipratropium (Duoneb -) 1 amp NEB RQID [facility] Last Admin: 01/20/18 07:50 Dose: 1 amp Nicotine (Nicoderm Patch -) 21 mg TD DAILY [facility] Last Admin: 01/20/18 09:05 Dose: Not Given - Objective Vital Signs: Vital Signs Temperature 98.3 F 01/20/18 06:00 Pulse Rate 75 01/20/18 06:00 Respiratory Rate 20 01/20/18 06:00 Blood Pressure 115/56 01/20/18 06:00 O2 Sat by Pulse Oximetry (%) 94 L 01/19/18 22:00 Constitutional: Yes: No Distress, Calm Neck: Yes: Supple Cardiovascular: Yes: Regular Rate and Rhythm Respiratory: Yes: Regular, Diminished, On Nasal O2 Gastrointestinal: Yes: Normal Bowel Sounds, Soft Edema: No Labs: CBC, BMP 01/18/18 06:17 01/18/18 06:17 INR, PTT INR 1.17 (0.82-1.09) H 01/16/18 13:07 Problem List - Problems (1) Atypical chest pain Code(s): R07.89 - OTHER CHEST PAIN (2) COPD (chronic obstructive pulmonary disease) Code(s): J44.9 - CHRONIC OBSTRUCTIVE PULMONARY DISEASE, UNSPECIFIED Qualifiers: COPD type: unspecified COPD Qualified Code(s): J44.9 - Chronic obstructive pulmonary disease, unspecified (3) Hemoptysis Code(s): R04.2 - HEMOPTYSIS (4) Mass of upper lobe of right lung Code(s): R91.8 - OTHER NONSPECIFIC ABNORMAL FINDING OF LUNG FIELD (5) Pre-procedural cardiovascular examination Code(s): Z01.810 - ENCOUNTER FOR PREPROCEDURAL CARDIOVASCULAR EXAMINATION Assessment/Plan 01/18/2018 Echo: Normal LV size and fxn, tr-mild MR, TR, mild [place] 1. Chest pain syndrome with atypical features 2. Pre-procedure cardiovascular evaluation 3. Hemoptysis with RUL and hilar mass suspicious for bronchogenic carcinoma 4. COPD P:1. Given absence of symptoms of acute coronary syndrome, decompensated CHF and malignant arrhythmia, > 4 Mets exercise capacity and low risk procedure, may proceed with fiberoptic bronchoscopy from CV-standpoint, plan for ETT to evaluate exercise capacity and exclude subclinical ischemia in AM 2. BD, O2, empiric abx course as you are
--- NOTE | 2018-01-20 13:11 | PN ---
Progress Note, Physician - Current Medication List Current Medications: Active Medications Nicotine (Nicoderm Patch -) 21 mg TD DAILY [facility] Last Admin: 01/20/18 09:05 Dose: Not Given - Objective Vital Signs: Vital Signs Temperature 98.3 F 01/20/18 06:00 Pulse Rate 75 01/20/18 06:00 Respiratory Rate 20 01/20/18 06:00 Blood Pressure 115/56 01/20/18 06:00 O2 Sat by Pulse Oximetry (%) 94 L 01/19/18 22:00 Constitutional: Yes: No Distress HENT: Yes: Atraumatic Neck: Yes: Supple Cardiovascular: Yes: Regular Rate and Rhythm Respiratory: Yes: CTA Bilaterally Gastrointestinal: Yes: Normal Bowel Sounds Extremities: Yes: WNL Neurological: Yes: Alert, Oriented Labs: CBC, BMP 01/18/18 06:17 01/18/18 06:17 INR, PTT INR 1.17 (0.82-1.09) H 01/16/18 13:07 Problem List - Problems (1) Hemoptysis Assessment/Plan: for bronchoscopy Code(s): R04.2 - HEMOPTYSIS (2) COPD (chronic obstructive pulmonary disease) Code(s): J44.9 - CHRONIC OBSTRUCTIVE PULMONARY DISEASE, UNSPECIFIED Qualifiers: COPD type: unspecified COPD Qualified Code(s): J44.9 - Chronic obstructive pulmonary disease, unspecified
--- NOTE | 2018-01-20 15:29 | PN ---
Progress Note, Physician History of Present Illness: Pt remains alert. Denies shortness of breath or hemoptysis. Temp of 100.3 last night but afebrile today. Has no new specific complaints. - Current Medication List Current Medications: Active Medications Nicotine (Nicoderm Patch -) 21 mg TD DAILY [facility] Last Admin: 01/20/18 09:05 Dose: Not Given - Objective Vital Signs: Vital Signs Temperature 98.0 F 01/20/18 14:25 Pulse Rate 80 01/20/18 14:25 Respiratory Rate 18 01/20/18 14:25 Blood Pressure 120/76 01/20/18 14:25 O2 Sat by Pulse Oximetry (%) 98 01/20/18 09:00 Constitutional: Yes: No Distress, Calm Neck: Yes: Supple Cardiovascular: Yes: Regular Rate and Rhythm Respiratory: Yes: CTA Bilaterally Gastrointestinal: Yes: Normal Bowel Sounds, Soft Genitourinary: Yes: WNL Musculoskeletal: Yes: WNL Extremities: Yes: Other (clubbing) Neurological: Yes: Alert, Oriented Labs: CBC, BMP 01/18/18 06:17 01/18/18 06:17 INR, PTT INR 1.17 (0.82-1.09) H 01/16/18 13:07 Problem List - Problems (1) COPD (chronic obstructive pulmonary disease) Code(s): J44.9 - CHRONIC OBSTRUCTIVE PULMONARY DISEASE, UNSPECIFIED Qualifiers: COPD type: unspecified COPD Qualified Code(s): J44.9 - Chronic obstructive pulmonary disease, unspecified (2) Hemoptysis Code(s): R04.2 - HEMOPTYSIS (3) Mass of upper lobe of right lung Code(s): R91.8 - OTHER NONSPECIFIC ABNORMAL FINDING OF LUNG FIELD (4) Pneumonia Code(s): J18.9 - PNEUMONIA, UNSPECIFIED ORGANISM Assessment/Plan 57 y.o. male with COPD/long time smoker who presented with cough/hemoptysis and nonspecific joint pain. Low grade fever last night but afebrile today. Denies cough/further hemoptysis/shortness of breath RUL perihilar lesion r/o malignancy Episode ofLow grade fever -- awaiting stress test -- monitor for recurrence of fever, repeat cbc in am -- continue monitor closely off antibiotics for now pt appears stable at this time
[2018-01-21 07:51] LABS: BASO % 1.1 % (0-2.0); EOS % 3.8 % (0-4.5); HEMATOCRIT 39.9 % (35.4-49); HEMOGLOBIN 13.3 GM/dL (11.7-16.9); LYMPH % 34.8 % (8-40); MCH 27.4 pg (25.7-33.7); MCHC 33.4 g/dl (32.0-35.9); MEAN CELL VOLUME 82.2 fl (80-96); MONO % 9.7 % (3.8-10.2); NEUT % 50.6 % (42.8-82.8); PLATELET COUNT 449 K/MM3 (134-434); RBC 4.85 M/mm3 (4.00-5.60); RDW 15.5 % (11.9-15.9); WHITE BLOOD COUNT 7.9 K/mm3 (4.0-10.0)
[2018-01-21] MEDS: NICOTINE 21 MG/24 HOURS TOPICAL PATCH TD SCH (09:17)
--- NOTE | 2018-01-21 10:54 | PN ---
Progress Note, Physician History of Present Illness: Atypical chest pain yesterday, none today. - Current Medication List Current Medications: Active Medications Nicotine (Nicoderm Patch -) 21 mg TD DAILY JAYSHREE Last Admin: 01/21/18 09:17 Dose: Not Given - Objective Vital Signs: Vital Signs Temperature 97.9 F 01/21/18 09:35 Pulse Rate 78 01/21/18 09:35 Respiratory Rate 16 01/21/18 09:35 Blood Pressure 150/74 01/21/18 09:35 O2 Sat by Pulse Oximetry (%) 97 01/21/18 09:00 Constitutional: Yes: No Distress, Calm, Thin Neck: Yes: Supple Cardiovascular: Yes: Regular Rate and Rhythm Respiratory: Yes: Regular, Diminished Gastrointestinal: Yes: Normal Bowel Sounds, Soft Edema: No Labs: CBC, BMP 01/21/18 06:52 01/18/18 06:17 INR, PTT INR 1.17 (0.82-1.09) H 01/16/18 13:07 Problem List - Problems (1) Atypical chest pain Code(s): R07.89 - OTHER CHEST PAIN (2) COPD (chronic obstructive pulmonary disease) Code(s): J44.9 - CHRONIC OBSTRUCTIVE PULMONARY DISEASE, UNSPECIFIED Qualifiers: COPD type: unspecified COPD Qualified Code(s): J44.9 - Chronic obstructive pulmonary disease, unspecified (3) Hemoptysis Code(s): R04.2 - HEMOPTYSIS (4) Mass of upper lobe of right lung Code(s): R91.8 - OTHER NONSPECIFIC ABNORMAL FINDING OF LUNG FIELD (5) Pre-procedural cardiovascular examination Code(s): Z01.810 - ENCOUNTER FOR PREPROCEDURAL CARDIOVASCULAR EXAMINATION Assessment/Plan 01/18/2018 Echo: Normal LV size and fxn, tr-mild MR, TR, mild MI 1. Chest pain syndrome with atypical features 2. Pre-procedure cardiovascular evaluation 3. Hemoptysis with RUL and hilar mass suspicious for bronchogenic carcinoma 4. COPD P:1. Given absence of symptoms of acute coronary syndrome, decompensated CHF and malignant arrhythmia, > 4 Mets exercise capacity and low risk procedure, may proceed with fiberoptic bronchoscopy from CV-standpoint, await ETT to evaluate exercise capacity and exclude subclinical ischemia in AM 2. BD, O2, monitor off abx as you are
--- NOTE | 2018-01-21 11:53 | PN ---
Progress Note (short form) - Note Progress Note: PULMONARY Denies shortness of breath or chest pain. No hemoptysis. Awaiting stress test. Echocardiogram unremarkable. Last Vital Signs Temp Pulse Resp BP Pulse Ox 97.9 F 78 16 150/74 97 01/21/18 09:35 01/21/18 09:35 01/21/18 09:35 01/21/18 09:35 01/21/18 09:00 Gen: NAD at rest Heart: RRR Lung: decreased breath sounds at the bases Abd: soft, nontender EXt: no edema, +clubbing CBC, BMP 01/21/18 06:52 01/18/18 06:17 Active Medications Nicotine (Nicoderm Patch -) 21 mg TD DAILY JAYSHREE Last Admin: 01/21/18 09:17 Dose: Not Given A/P Lung Mass Hemoptysis COPD Chest Pain Smoker - for stress test - scheduled for bronchoscopy tomorrow at 12:30PM - DVT prophylaxis
--- NOTE | 2018-01-21 14:47 | PN ---
Progress Note, Physician History of Present Illness: patient stable had his stress test - Current Medication List Current Medications: Active Medications Nicotine (Nicoderm Patch -) 21 mg TD DAILY JAYSHREE Last Admin: 01/21/18 09:17 Dose: Not Given - Objective Vital Signs: Vital Signs Temperature 97.7 F 01/21/18 13:47 Pulse Rate 90 01/21/18 13:47 Respiratory Rate 20 01/21/18 13:47 Blood Pressure 125/78 01/21/18 13:47 O2 Sat by Pulse Oximetry (%) 97 01/21/18 09:00 Constitutional: Yes: No Distress, Calm HENT: Yes: Atraumatic, Normocephalic Cardiovascular: Yes: Regular Rate and Rhythm Respiratory: Yes: Regular, CTA Bilaterally Gastrointestinal: Yes: Normal Bowel Sounds, Soft Musculoskeletal: Yes: WNL Extremities: Yes: WNL Neurological: Yes: Alert, Oriented Psychiatric: Yes: Alert Labs: CBC, BMP 01/21/18 06:52 01/18/18 06:17 INR, PTT INR 1.17 (0.82-1.09) H 01/16/18 13:07 Assessment/Plan Problem List - Problems (1) COPD (chronic obstructive pulmonary disease) Code(s): J44.9 - CHRONIC OBSTRUCTIVE PULMONARY DISEASE, UNSPECIFIED (2) Joint pain Code(s): M25.50 - PAIN IN UNSPECIFIED JOINT (3) Pneumonia Code(s): J18.9 - PNEUMONIA, UNSPECIFIED ORGANISM (4) Hemoptysis Code(s): R04.2 - HEMOPTYSIS plan await for stress test await for bronchoscpy no hemoptysis rest as per the team
--- NOTE | 2018-01-21 15:14 | PN ---
Progress Note, Physician - Current Medication List Current Medications: Active Medications Nicotine (Nicoderm Patch -) 21 mg TD DAILY JAYSHREE Last Admin: 01/21/18 09:17 Dose: Not Given - Objective Vital Signs: Vital Signs Temperature 97.7 F 01/21/18 13:47 Pulse Rate 90 01/21/18 13:47 Respiratory Rate 20 01/21/18 13:47 Blood Pressure 125/78 01/21/18 13:47 O2 Sat by Pulse Oximetry (%) 97 01/21/18 09:00 Constitutional: Yes: No Distress HENT: Yes: Atraumatic Neck: Yes: Supple Cardiovascular: Yes: Regular Rate and Rhythm Respiratory: Yes: CTA Bilaterally Gastrointestinal: Yes: Normal Bowel Sounds Extremities: Yes: WNL Neurological: Yes: Alert, Oriented Labs: CBC, BMP 01/21/18 06:52 01/18/18 06:17 INR, PTT INR 1.17 (0.82-1.09) H 01/16/18 13:07 Problem List - Problems (1) Hemoptysis Assessment/Plan: for bronchoscopy Code(s): R04.2 - HEMOPTYSIS (2) COPD (chronic obstructive pulmonary disease) Assessment/Plan: duo nebs prn Code(s): J44.9 - CHRONIC OBSTRUCTIVE PULMONARY DISEASE, UNSPECIFIED Qualifiers: COPD type: unspecified COPD Qualified Code(s): J44.9 - Chronic obstructive pulmonary disease, unspecified (3) Atypical chest pain Assessment/Plan: for stress test on sunday Code(s): R07.89 - OTHER CHEST PAIN
--- NOTE | 2018-01-21 16:54 | TRE ---
Protocol Name : JESSY Max Work Load (METS*10) : 104 Time In Exercise Phase : 00:09:00 Max. Systolic BP : 178 mmHg Max Diastolic BP : 80 mmHg Max Heart Rate : 151 BPM Max Predicted Heart Rate : 165 BPM Attending Physician : DR. GROVER Reason For Termination : Target Heart Rate Achieved Reason for Test : ATYPICAL CHEST PAIN Stress Protocol : JESSY Rest HR : 96 BPM PeakEx METs : 10.1 METS Arrhythmias : Ventricular Premature Beats, Isolated Resting ECG : Normal Recovery ECG Response (OLD) : Overall Impression : Normal stress test Chest Pain : No Chest Pain HR Response To Exercise : Normal Overall HR Response To Exercise BP Response To Exercise : Normal Resting BP with Appropriate Response Functional Capacity : Above Average (> 20%) Diagnosis : 1. NEGATIVE STRESS TEST 2. APPROPRIATE BLOOD PRESSURE RESPONSE. PEAK BLOOD PRESSURE IS 178/80 MMHG 3. FAIR EXERCISE TOLERANCE AND CAPACITY. PATIENT EXERCISED 9 MINUTES INTO STAGE 3 JESSY PROTOCOL AND ACHIEVED 91% MPTHR 4. NO SIGNIFICANT ELECTROCARDIOGRAPHIC CHANGES ARE SEEN. OCCASIONAL PVCS ARE SEEN Confirmed by LENORE GOMEZ, FAVIO ([id number]) on 01/21/2018 4:54:05 PM
[2018-01-22] MEDS: NICOTINE 21 MG/24 HOURS TOPICAL PATCH TD SCH (09:48)
--- NOTE | 2018-01-22 10:59 | PN ---
Progress Note (short form) - Note Progress Note: PULMONARY Denies shortness of breath or chest pain. No hemoptysis. Stress test negative. Last Vital Signs Temp Pulse Resp BP Pulse Ox 98.1 F 72 20 117/70 96 01/22/18 09:00 01/22/18 09:00 01/22/18 09:00 01/22/18 09:00 01/22/18 09:00 Gen: NAD at rest Heart: RRR Lung: decreased breath sounds at the bases Abd: soft, nontender EXt: no edema, +clubbing CBC, BMP 01/21/18 06:52 01/18/18 06:17 Active Medications Nicotine (Nicoderm Patch -) 21 mg TD DAILY JAYSHREE Last Admin: 01/22/18 09:48 Dose: Not Given A/P Lung Mass likely malignant Hemoptysis COPD Chest Pain Smoker - will proceed with bronchoscopy, risks and benefits discussed - DVT prophylaxis
--- NOTE | 2018-01-22 11:03 | PN ---
Progress Note, Physician Chief Complaint: Events noted Exercise treadmill stress test negative Not in distress History of Present Illness: Patient was seen and examined. Awake and alert. Chart was reviewed Denies chest pain, SOB or palpitations - Current Medication List Current Medications: Active Medications Nicotine (Nicoderm Patch -) 21 mg TD DAILY JAYSHREE Last Admin: 01/22/18 09:48 Dose: Not Given - Objective Vital Signs: Vital Signs Temperature 98.1 F 01/22/18 09:00 Pulse Rate 72 01/22/18 09:00 Respiratory Rate 20 01/22/18 09:00 Blood Pressure 117/70 01/22/18 09:00 O2 Sat by Pulse Oximetry (%) 96 01/22/18 09:00 Eyes: Yes: PERRL HENT: Yes: Atraumatic Neck: Yes: Supple Cardiovascular: Yes: Regular Rate and Rhythm, S1, S2 Respiratory: Yes: CTA Bilaterally Gastrointestinal: Yes: Normal Bowel Sounds, Soft. No: Tenderness Edema: No Problem List - Problems (1) Atypical chest pain Code(s): R07.89 - OTHER CHEST PAIN (2) COPD (chronic obstructive pulmonary disease) Code(s): J44.9 - CHRONIC OBSTRUCTIVE PULMONARY DISEASE, UNSPECIFIED Qualifiers: COPD type: unspecified COPD Qualified Code(s): J44.9 - Chronic obstructive pulmonary disease, unspecified (3) Hemoptysis Code(s): R04.2 - HEMOPTYSIS (4) Mass of upper lobe of right lung Code(s): R91.8 - OTHER NONSPECIFIC ABNORMAL FINDING OF LUNG FIELD (5) Pre-procedural cardiovascular examination Code(s): Z01.810 - ENCOUNTER FOR PREPROCEDURAL CARDIOVASCULAR EXAMINATION Assessment/Plan 1. Chest pain syndrome with atypical features 2. Pre-procedure cardiovascular evaluation - negative regular stress testing 3. Hemoptysis with RUL and hilar mass suspicious for bronchogenic carcinoma 4. COPD PLAN: 1. There appears to be no absolute contraindication in proceeding with planned bronchoscopy in view of absence of ischemic symptoms, decompensated congestive heart failure or malignant arrhythmias 2. Bronchodilator, O2 3. Further plans are to follow Pedro Weaver MD
[2018-01-22] MEDS ORDERED: PROPOFOL 20 ML ONE (12:41)
[2018-01-22] MEDS ORDERED: MIDAZOLAM HCL 2 MG/2 ML SINGLE DOSE VIAL ONE (12:41)
[2018-01-22] MEDS ORDERED: ROCURONIUM BROMIDE 50 MG/5 ML VIAL ONE (12:45)
[2018-01-22] MEDS ORDERED: LIDOCAINE HCL/PF 2% SDV 5ML VIAL ONE (12:45)
[2018-01-22] MEDS ORDERED: DEXAMETHASONE SOD PHOSPHATE 4 MG/1 ML VIAL ONE (12:45)
[2018-01-22] MEDS ORDERED: ePHEDrine SULFATE 50 MG/1 ML AMPULE ONE (13:21)
--- NOTE | 2018-01-22 13:51 | PN ---
Progress Note, Physician History of Present Illness: patient stable no new issues for bronch remaining stable - Current Medication List Current Medications: Active Medications Nicotine (Nicoderm Patch -) 21 mg TD DAILY JAYSHREE Last Admin: 01/22/18 09:48 Dose: Not Given - Objective Vital Signs: Vital Signs Temperature 98.1 F 01/22/18 09:00 Pulse Rate 72 01/22/18 09:00 Respiratory Rate 20 01/22/18 09:00 Blood Pressure 117/70 01/22/18 09:00 O2 Sat by Pulse Oximetry (%) 96 01/22/18 09:00 Constitutional: Yes: No Distress, Calm Cardiovascular: Yes: Regular Rate and Rhythm Respiratory: Yes: Regular, Poor Air Entry Gastrointestinal: Yes: Normal Bowel Sounds, Soft Musculoskeletal: Yes: WNL Extremities: Yes: WNL Neurological: Yes: Alert, Oriented Psychiatric: Yes: Alert, Oriented Labs: CBC, BMP 01/21/18 06:52 01/18/18 06:17 INR, PTT INR 1.17 (0.82-1.09) H 01/16/18 13:07 Assessment/Plan Problem List - Problems (1) COPD (chronic obstructive pulmonary disease) Code(s): J44.9 - CHRONIC OBSTRUCTIVE PULMONARY DISEASE, UNSPECIFIED (2) Joint pain Code(s): M25.50 - PAIN IN UNSPECIFIED JOINT (3) Pneumonia Code(s): J18.9 - PNEUMONIA, UNSPECIFIED ORGANISM (4) Hemoptysis Code(s): R04.2 - HEMOPTYSIS plan await bronch rest continue monitoring patient clnnically stable rest as per the team
--- NOTE | 2018-01-22 14:12 | PROC ---
Procedure Note Procedure: BRONCHOSCOPY NOTE After discussing the risks and benefits of the procedure, informed consent was obtained. Pt was placed under general anesthesia and intubated with size 8.0 ETT. Storz video bronchoscope was passed via the ETT and the airways were examined down to the subsegmental level. The donte was sharp, no endobronchial lesions noted on the left. In the right upper lobe posterior segment, the bronchus was narrowed but no endobronchial mass was seen. Transbronchial biopsies were taken, brushed and washed. Samples sent for cultures, cytology and pathology. Bronchoscope withdrawn and procedure terminated. No immediate complications. Pre-op Dx: Lung Mass Post-op Dx: r/o lung cancer Plan: - f/u cultures, cytology and pathology - discussed with pt and family Brien Romero MD
[2018-01-22] MEDS ORDERED: ONDANSETRON 4 MG/2 ML VIAL IVPUSH PRN (14:18)
[2018-01-22] MEDS ORDERED: LACTATED RINGERS SOLUTION 1,000 ML IV SCH (14:30)
--- NOTE | 2018-01-22 19:24 | PN ---
Progress Note, Physician History of Present Illness: s/p bronchoscopy - Current Medication List Current Medications: Active Medications Lactated Ringer's (Lactated Ringers Solution) 1,000 mls @ 125 mls/hr IV ASDIR JAYSHREE Nicotine (Nicoderm Patch -) 21 mg TD DAILY JAYSHREE Ondansetron HCl (Zofran Injection) 4 mg IVPUSH Q6H PRN PRN Reason: NAUSEA AND/OR VOMITING - Objective Vital Signs: Vital Signs Temperature 98.2 F 01/22/18 18:00 Pulse Rate 84 01/22/18 18:00 Respiratory Rate 19 01/22/18 18:00 Blood Pressure 116/70 01/22/18 18:00 O2 Sat by Pulse Oximetry (%) 96 01/22/18 15:05 Constitutional: Yes: No Distress HENT: Yes: Atraumatic Neck: Yes: Supple Cardiovascular: Yes: Regular Rate and Rhythm Respiratory: Yes: CTA Bilaterally Gastrointestinal: Yes: Normal Bowel Sounds Extremities: Yes: WNL Neurological: Yes: Alert, Oriented Labs: CBC, BMP 01/21/18 06:52 01/18/18 06:17 INR, PTT INR 1.17 (0.82-1.09) H 01/16/18 13:07 Problem List - Problems (1) Hemoptysis Assessment/Plan: s/p bronchoscopy stable Code(s): R04.2 - HEMOPTYSIS (2) COPD (chronic obstructive pulmonary disease) Assessment/Plan: duo nebs prn Code(s): J44.9 - CHRONIC OBSTRUCTIVE PULMONARY DISEASE, UNSPECIFIED Qualifiers: COPD type: unspecified COPD Qualified Code(s): J44.9 - Chronic obstructive pulmonary disease, unspecified (3) Atypical chest pain Assessment/Plan: stress test negative Code(s): R07.89 - OTHER CHEST PAIN
[2018-01-23 07:31] LABS: BASO % 0.8 % (0-2.0); EOS % 0.6 % (0-4.5); HEMATOCRIT 38.7 % (35.4-49); LYMPH % 17.7 % (8-40); MCH 27.4 pg (25.7-33.7); MCHC 33.5 g/dl (32.0-35.9); MEAN CELL VOLUME 81.8 fl (80-96); MEAN PLT VOLUME 7.6 fl (7.5-11.1); MONO % 6.6 % (3.8-10.2); NEUT % 74.3 % (42.8-82.8); PLATELET COUNT 468 K/MM3 (134-434); RBC 4.73 M/mm3 (4.00-5.60); RDW 15.5 % (11.9-15.9); WHITE BLOOD COUNT 11.6 K/mm3 (4.0-10.0)
[2018-01-23 08:03] LABS: ALBUMIN 3.2 g/dl (3.4-5.0); ANION GAP 6 (8-16); BILIRUBIN,TOTAL 0.2 mg/dL (0.2-1.0); BLOOD UREA NITROGEN 18 mg/dL (7-18); CALCIUM 8.5 mg/dL (8.5-10.1); CHLORIDE 106 mmol/L (98-107); CO2 26 mmol/L (21-32); CREATININE 0.8 mg/dL (0.7-1.3); GLUCOSE,RANDOM 110 mg/dL (74-106); POTASSIUM 4.2 mmol/L (3.5-5.1); SGOT/AST 8 U/L (15-37); SGPT/ALT 15 U/L (12-78); SODIUM 138 mmol/L (136-145); TOT PROT 6.8 g/dl (6.4-8.2)
[2018-01-23 08:04] LABS: ALK PHOS 100 U/L (45-117)
[2018-01-23] MEDS ORDERED: NICOTINE 21 MG/24 HOURS TOPICAL PATCH TD SCH (10:00)
--- NOTE | 2018-01-23 11:42 | PN ---
Progress Note, Physician History of Present Illness: No further atypical chest pain, ETT negative for ischemia, underwent bronchoscopy without sequelae. - Current Medication List Current Medications: Active Medications Nicotine (Nicoderm Patch -) 21 mg TD DAILY JAYSHREE Last Admin: 01/23/18 10:25 Dose: Not Given Ondansetron HCl (Zofran Injection) 4 mg IVPUSH Q6H PRN PRN Reason: NAUSEA AND/OR VOMITING - Objective Vital Signs: Vital Signs Temperature 98.3 F 01/23/18 09:00 Pulse Rate 76 01/23/18 09:00 Respiratory Rate 18 01/23/18 09:00 Blood Pressure 149/82 01/23/18 09:00 O2 Sat by Pulse Oximetry (%) 96 01/23/18 09:00 Constitutional: Yes: No Distress, Calm, Thin Neck: Yes: Supple Cardiovascular: Yes: Regular Rate and Rhythm Respiratory: Yes: Regular, CTA Bilaterally Gastrointestinal: Yes: Normal Bowel Sounds, Soft Edema: No Labs: CBC, BMP 01/23/18 06:20 01/23/18 07:00 INR, PTT INR 1.17 (0.82-1.09) H 01/16/18 13:07 - ....Imaging Chest X-ray: Report Reviewed (NAD, no PTX) Problem List - Problems (1) Atypical chest pain Code(s): R07.89 - OTHER CHEST PAIN (2) COPD (chronic obstructive pulmonary disease) Code(s): J44.9 - CHRONIC OBSTRUCTIVE PULMONARY DISEASE, UNSPECIFIED Qualifiers: COPD type: unspecified COPD Qualified Code(s): J44.9 - Chronic obstructive pulmonary disease, unspecified (3) Hemoptysis Code(s): R04.2 - HEMOPTYSIS (4) Mass of upper lobe of right lung Code(s): R91.8 - OTHER NONSPECIFIC ABNORMAL FINDING OF LUNG FIELD Assessment/Plan 01/18/2018 Echo: Normal LV size and fxn, tr-mild MR, TR, mild [place] 01/22/2018 ETT: Negative for ischemia after 10 METS 1. Chest pain syndrome with atypical features 3. Hemoptysis with RUL and hilar mass suspicious for bronchogenic carcinoma s/p bronchoscopy 3. COPD PLAN: 1. F/u cultures, cytology and pathology 2. D/c planning
[2018-01-23 14:06] VITALS: BP 142/90; PULSE 80; TEMP 98.2
--- NOTE | 2018-01-23 14:51 | PN ---
Progress Note, Physician History of Present Illness: patient stable no new issues post bronch doing well - Current Medication List Current Medications: Active Medications Nicotine (Nicoderm Patch -) 21 mg TD DAILY JAYSHREE Last Admin: 01/23/18 10:25 Dose: Not Given Ondansetron HCl (Zofran Injection) 4 mg IVPUSH Q6H PRN PRN Reason: NAUSEA AND/OR VOMITING - Objective Vital Signs: Vital Signs Temperature 98.2 F 01/23/18 14:04 Pulse Rate 80 01/23/18 14:04 Respiratory Rate 20 01/23/18 14:04 Blood Pressure 142/90 01/23/18 14:04 O2 Sat by Pulse Oximetry (%) 96 01/23/18 09:00 Constitutional: Yes: No Distress, Calm Cardiovascular: Yes: Regular Rate and Rhythm Respiratory: Yes: Regular, Poor Air Entry Gastrointestinal: Yes: Normal Bowel Sounds, Soft Musculoskeletal: Yes: WNL Extremities: Yes: WNL Neurological: Yes: Alert, Oriented Psychiatric: Yes: Alert, Oriented Labs: CBC, BMP 01/23/18 06:20 01/23/18 07:00 INR, PTT INR 1.17 (0.82-1.09) H 01/16/18 13:07 Assessment/Plan Problem List - Problems (1) COPD (chronic obstructive pulmonary disease) Code(s): J44.9 - CHRONIC OBSTRUCTIVE PULMONARY DISEASE, UNSPECIFIED (2) Joint pain Code(s): M25.50 - PAIN IN UNSPECIFIED JOINT (3) Pneumonia Code(s): J18.9 - PNEUMONIA, UNSPECIFIED ORGANISM (4) Hemoptysis Code(s): R04.2 - HEMOPTYSIS plan await all cx reports patient can follow with pul as out patient rest continue current mgmt patient stable
--- NOTE | 2018-01-23 15:51 | PN ---
Progress Note, Physician - Current Medication List Current Medications: Active Medications Nicotine (Nicoderm Patch -) 21 mg TD DAILY JAYSHREE Last Admin: 01/23/18 10:25 Dose: Not Given Ondansetron HCl (Zofran Injection) 4 mg IVPUSH Q6H PRN PRN Reason: NAUSEA AND/OR VOMITING - Objective Vital Signs: Vital Signs Temperature 98.2 F 01/23/18 14:04 Pulse Rate 80 01/23/18 14:04 Respiratory Rate 20 01/23/18 14:04 Blood Pressure 142/90 01/23/18 14:04 O2 Sat by Pulse Oximetry (%) 96 01/23/18 09:00 Labs: CBC, BMP 01/23/18 06:20 01/23/18 07:00 INR, PTT INR 1.17 (0.82-1.09) H 01/16/18 13:07 Problem List - Problems (1) COPD (chronic obstructive pulmonary disease) Code(s): J44.9 - CHRONIC OBSTRUCTIVE PULMONARY DISEASE, UNSPECIFIED Qualifiers: COPD type: unspecified COPD Qualified Code(s): J44.9 - Chronic obstructive pulmonary disease, unspecified (2) Joint pain Code(s): M25.50 - PAIN IN UNSPECIFIED JOINT (3) Pneumonia Code(s): J18.9 - PNEUMONIA, UNSPECIFIED ORGANISM (4) Hemoptysis Code(s): R04.2 - HEMOPTYSIS Assessment/Plan IMP HEMOPTYSIS LIKELY BRONCHOGENIC CA R HILAR FULLNESS LIKELY BRONCHOGENIC CA CA COPD PLAN INHALED BRONCHODILATORS O2 QUANTIFY HEMOPTYSIS PATH PENDING DR GONZALEZ Problem List - Problems (1) COPD (chronic obstructive pulmonary disease) Code(s): J44.9 - CHRONIC OBSTRUCTIVE PULMONARY DISEASE, UNSPECIFIED (2) Joint pain Code(s): M25.50 - PAIN IN UNSPECIFIED JOINT (3) Pneumonia Code(s): J18.9 - PNEUMONIA, UNSPECIFIED ORGANISM (4) Hemoptysis Code(s): R04.2 - HEMOPTYSIS
--- NOTE | 2018-01-23 19:34 | DS ---
Physical Examination Vital Signs: Vital Signs Temperature 98.2 F 01/23/18 14:04 Pulse Rate 80 01/23/18 14:04 Respiratory Rate 20 01/23/18 14:04 Blood Pressure 142/90 01/23/18 14:04 O2 Sat by Pulse Oximetry (%) 96 01/23/18 09:00 Constitutional: Yes: No Distress HENT: Yes: Atraumatic Neck: Yes: Supple Cardiovascular: Yes: Regular Rate and Rhythm Respiratory: Yes: CTA Bilaterally Gastrointestinal: Yes: Normal Bowel Sounds Extremities: Yes: WNL Labs: CBC, BMP 01/23/18 06:20 01/23/18 07:00 Discharge Summary Reason For Visit: HEMOPTYSIS Condition: Stable - Instructions Diet, Activity, Other Instructions: Follow up with Pulmonary physician Dr. Romero concerning broncoscopy results in one week: Follow up with oncology physician Dr. Boone: Follow up with Dr. Castro concerning test results in one week: Referrals: Hetal Coffey MD [Primary Care Provider] - Disposition: HOME - Home Medications Comprehensive Discharge Medication List: mi home
--- NOTE | 2018-01-25 14:32 | PATH ---
Surgical Pathology Report Patient Name: OLVIN AQUINO Med. Rec. #: [id number] /Age/Gender: 1960 (Age: 57) / M Account: [id number] Location: [facility] MED/SURG Taken: 01/22/2018 Received: 01/23/2018 Reported: 01/25/2018 Physicians: Luiz Castro M.D. Brien Romero M.D. Adam Boone M.D. Specimen(s) Received RIGHT UPPER LOBE MASS BIOPSIES Clinical History Right upper lobe mass Final Diagnosis LUNG, RIGHT, UPPER LOBE, MASS, BIOPSY: INVASIVE ADENOCARCINOMA, MODERATELY DIFFERENTIATED. Comment: Immunohistochemical stains performed and interpreted at [facility] show the tumor is positive for TTF-1 and CK-7. Additional Immunohistochemical stains performed at [place], [place] ([id number]) and interpreted at [facility] show the tumor is positive for Napsin-A, while negative for p40. See concurrent cytology ([id number] and [id number]). Findings discussed with Dr. Romero. ALK FISH and lung molecular studies are pending and will be reported separately. Electronically Signed Birdie Mtz M.D. Addendum Reported: 01/31/2018 Addendum Diagnosis FISH Report from [facility] in [place], [place] ([id number]) INTERPRETATION: No evidence of a rearrangement of ALK (2p23). See Emerge report for details. Birdie Mtz M.D. Addendum Reported: 02/13/2018 Addendum Diagnosis NextGen Sequencing Lung Major Panel: Integrated Molecular Report performed and interpreted at [place], [place] ([id number]) RESULTS: Mutational Analysis Gene(s) WITH Detected Alterations: KRAS p.G12V (c.35G>T) (Pathogenic) Genes with NO Detected Alterations of the Amino Acid Sequence: ALK, BRAF, EGFR, ERBB2, MET, PIK3CA, RET, TP53 INTERPRETATION OF RESULTS: Molecular: Mutation is detected in the KRAS gene at p.G12V with frequency of 26.3%. FISH: No evidence of a rearrangement of ALK(2p23). See Emerge report for additional details ([id number]). Birdie Mtz M.D. Addendum Reported: 02/14/2018 Addendum Diagnosis PD-L1 performed and interpreted at [facility] ([id number]) shows the following: RESULTS: High PD-L1 expression, Tumor Proportion Score Result: 50% See Emerge report for additional details ([id number]) Birdie Mtz M.D. Gross Description Received in formalin labeled "right upper lobe mass biopsies," is a 0.5 x 0.5 x 0.1 cm aggregate of jenkins soft tissue fragments. The formalin is filtered and the specimen is entirely submitted in one cassette. 01/23/201801/23/2018
--- NOTE | 2018-01-25 14:37 | PATH ---
Cytology Non-Gynecological Report Patient Name: OLVIN AQUINO Med. Rec. #: [id number] /Age/Gender: 1960 (Age: 57) / M Account: [id number] Location: [facility] MED/SURG Taken: 01/22/2018 Received: 01/23/2018 Reported: 01/25/2018 Physicians: Sarah Liang M.D. Specimen(s) Received BRONCHIAL WASHINGS Clinical History Right upper lobe mass Final Diagnosis BRONCHIAL WASHING FOR CYTOLOGY: SATISFACTORY FOR EVALUATION. POSITIVE FOR MALIGNANT CELLS. ADENOCARCINOMA. MALIGNANT EPITHELIAL CELLS DISPERSED CLUSTERS AND SINGLE CELLS IN A BACKGROUND OF MACROPHAGES AND RARE BRONCHIAL EPITHELIAL CELLS. Comment: Immunohistochemical stains performed and interpreted at [facility] show the malignant cells are positive for TTF-1. Concurrent materials ([id number] and [id number]) were reviewed and appear morphologically similar. Findings discussed with . Electronically Signed Birdie Mtz M.D. Gross Description Approximately 30 cc of pink fluid received fixed in 50% alcohol. Two cytofunnels and one cellblock prepared
--- NOTE | 2018-01-25 14:40 | PATH ---
Cytology Non-Gynecological Report Patient Name: OLVIN AQUINO Med. Rec. #: [id number] /Age/Gender: 1960 (Age: 57) / M Account: [id number] Location: [facility] MED/SURG Taken: 01/22/2018 Received: 01/23/2018 Reported: 01/25/2018 Physicians: Sarah Liang M.D. Specimen(s) Received BRONCHIAL BRUSHINGS Clinical History Right upper lobe mass Final Diagnosis BRONCHIAL BRUSHING FOR CYTOLOGY: SATISFACTORY FOR EVALUATION. POSITIVE FOR MALIGNANT CELLS. ADENOCARCINOMA. MALIGNANT EPITHELIAL CELLS DISPERSED CLUSTERS AND SINGLE CELLS IN A BACKGROUND OF MACROPHAGES. Comment: Immunohistochemical stains performed and interpreted at [facility] show The tumor is positive for TTF-1. Concurrent materials ([id number] and [id number]) are reviewed and appear morphologically similar. Findings discussed with Dr. Romero. Electronically Signed Birdie Mtz M.D. Gross Description Received are 2 brushes in 50% alcohol. Two smears, two cytofunnels and one cellblock prepared.
== END 2018-01-23 17:40 | disposition home or self-care (01) | DRG 136 ==
LOC: JER 07:09 → JERBED 09:10 → J5S 01-16 12:36 → J7W 01-17 19:03
PROVIDERS: ADMIT Internal Medicine; ATTEND Internal Medicine
PROC: 0BD78ZX Extraction of Left Main Bronchus, Via Natural or Artificial Opening Endoscopic, Diagnostic (ICD-10-PCS; 2018-01-22)
PROC: 0BD38ZX Extraction of Right Main Bronchus, Via Natural or Artificial Opening Endoscopic, Diagnostic (ICD-10-PCS; 2018-01-22)
PROC: 0BJ08ZZ Inspection of Tracheobronchial Tree, Via Natural or Artificial Opening Endoscopic (ICD-10-PCS; principal; 2018-01-22 12:30)
DX: C34.11 Malignant neoplasm of upper lobe, right bronchus or lung (principal); R91.8 Other nonspecific abnormal finding of lung field; F17.210 Nicotine dependence, cigarettes, uncomplicated; R07.89 Other chest pain; J44.9 Chronic obstructive pulmonary disease, unspecified; R04.2 Hemoptysis; J18.9 Pneumonia, unspecified organism
CPT/HCPCS: 36415; 71045-TC-FY; 71046-TC-FY; 71260-TC; 80048; 80053; 82550; 84484; 85025; 85027; 85610; 87040; 87070; 87102; 87116; 87184; 87205; 87206; 87210; 87804; 93005; 93010; 93017; 93018; 93306-TC; 94640; 94760; 99285-25

== ENCOUNTER 2019-02-13 19:22 | Observation (INO) | payer OTHER ==
--- NOTE | 2019-02-13 19:34 | PDOC ---
Rapid Medical Evaluation Chief Complaint: Weakness Time Seen by Provider: 02/13/19 19:31 Medical Evaluation: Allergies Allergy/AdvReac Type Severity Reaction Status Date / Time No Known Allergies Allergy Verified 01/14/18 07:15 02/13/19 19:31 I have performed a brief in-person evaluation of this patient. The patient presents with a chief complaint of:Fatigue, lighthededness and nausea. Patient s/p radiation therapy for lungs CA with last Tx 2 months ago Pertinent physical exam findings: A&O x 3 I have ordered the following: CBC, CMP, cardiac profile The patient will proceed to the ED for further evaluation. Discharge Disposition - Diagnosis Malaise and fatigue - Discharge Dispostion Condition at time of disposition: Stable - Referrals - Patient Instructions - Post Discharge Activity
--- NOTE | 2019-02-13 20:04 | PDOC ---
History of Present Illness - General Chief Complaint: Weakness Stated Complaint: SICK Time Seen by Provider: 02/13/19 19:31 History Source: Patient Exam Limitations: No Limitations - History of Present Illness Initial Comments: 02/13/19 20:12 58 year old male with PMH COPD, HTN, HLD, small cell lung CA s/p resection/chemo /radiation presented to ED for lightheadedness x3 weeks, becoming more frequent over the last few days. Pt stated he mostly feels his lightheadedness come on when he is exerting himself, but sometimes feels it laying down at rest. Pt also admitted to cough x2 months. Pt denied chest pain, shortness of breath, nausea, vomiting, abdominal pain, syncope. Pt finished radiation in December. Past History - Past Medical History Allergies/Adverse Reactions: Allergies Allergy/AdvReac Type Severity Reaction Status Date / Time No Known Allergies Allergy Verified 01/14/18 07:15 Home Medications: Ambulatory Orders Albuterol Sulfate Inhaler - [Ventolin HFA Inhaler -] 2 inh PO PRN 02/14/19 Amlodipine Besylate 2.5 mg PO DAILY 02/14/19 Atorvastatin Ca [Lipitor] 40 mg PO DAILY 02/14/19 Bupropion HCl [Wellbutrin Xl -] 150 mg PO DAILY 02/14/19 Nicotine Polacrilex [Nicotine Lozenge] 2 mg BC PRN 02/14/19 Tiotropium Alva [Spiriva Respimat] 5 mcg IH DAILY 02/14/19 COPD: Yes - Surgical History Abdominal Surgery: Yes (rt ing hernia) - Family Disease History Family Disease History: Heart Disease: Father, Mother, Other: Grandparents ( Lung Ca) - Suicide/Smoking/Psychosocial Hx Smoking History: Current every day smoker Have you smoked in the past 12 months: Yes Number of Cigarettes Smoked Daily: 10 Information on smoking cessation initiated: No 'Breaking Loose' booklet given: 01/14/18 Hx Alcohol Use: No Drug/Substance Use Hx: No Substance Use Type: Marijuana Review of Systems - Review of Systems Able to Perform ROS?: Yes Comments:: 02/13/19 20:14 General: admitted to generalized weakness. denied fever, chills. HEENT: denied sore throat, rhinorrhea, ear pain. Heart: admitted to lightheadedness. denied chest pain, palpitations, syncope, diaphoresis. Respiratory: admitted to cough, sputum production. denied shortness of breath, hemoptysis. Abdomen: denied abdominal pain, nausea, vomiting, diarrhea, constipation, blood in stool. : denied dysuria, increased urinary frequency, hematuria, urinary incontinence , flank pain. Back: denied back pain. Musculoskeletal: denied joint pain, muscle pain, joint swelling. Neurological: denied headache, dizziness, numbness, tingling, weakness. Skin: denied rash, laceration, abrasion. *Physical Exam - Vital Signs Last Vital Signs Temp Pulse Resp BP Pulse Ox 98.5 F 76 20 125/77 99 02/13/19 19:28 02/13/19 19:28 02/13/19 19:28 02/13/19 19:28 02/13/19 19:28 - Physical Exam Comments: 02/13/19 20:14 Constitutional: Well-nourished, Well-developed, appearing stated age. HEENT: head is normocephalic, atraumatic. EOMI. PERRLA. Neck: supple. Full ROM. Heart: regular rhythm. no murmurs, rubs or gallops. Lungs: decreased breath sounds bilaterally. clear to auscultation bilaterally. no crackles, rhonchi or wheezing. no stridor. Abdomen: soft, nontender. normal bowel sounds. no rebound, guarding, masses. Extremities: peripheral pulses intact. no lower extremity edema. Neurological: CN 2-12 grossly intact. moves all four extremities. Psych: awake, alert, oriented x3. follows commands. answers questions appropriately. ED Treatment Course - LABORATORY CBC & Chemistry Diagram: 02/14/19 05:30 02/14/19 05:30 Medical Decision Making - Medical Decision Making 02/13/19 20:15 58 year old male with above PMH presented to ED for pre-syncope x3 weeks, becoming more frequent over the last few days. Initial Vital Signs Temp Pulse Resp BP Pulse Ox 98.5 F 76 20 125/77 99 02/13/19 19:28 02/13/19 19:28 02/13/19 19:28 02/13/19 19:28 02/13/19 19:28 Afebrile. No tachycardia. No tachypnea. No hypotension. No hypoxia on room air. Labs ordered: CBC, CMP, Troponin Imaging ordered: CXR Medications ordered: none EKG performed at 2010: rate 76, regular rhythm, normal axis, normal intervals, flat T in I/aVL/V5/V6. Similar to prior 01/14/18. 02/13/19 21:06 CBC WBC 8.6 K/mm3 (4.0-10.0) 02/13/19 20:15 RBC 4.67 M/mm3 (4.00-5.60) 02/13/19 20:15 Hgb 13.9 GM/dL (11.7-16.9) 02/13/19 20:15 Hct 41.3 % (35.4-49) 02/13/19 20:15 MCV 88.4 fl (80-96) 02/13/19 20:15 MCH 29.7 pg (25.7-33.7) 02/13/19 20:15 MCHC 33.5 g/dl (32.0-35.9) 02/13/19 20:15 RDW 14.7 % (11.9-15.9) 02/13/19 20:15 Plt Count 315 K/MM3 (134-434) D 02/13/19 20:15 MPV 7.9 fl (7.5-11.1) 02/13/19 20:15 Absolute Neuts (auto) 6.0 K/mm3 (1.5-8.0) 02/13/19 20:15 Neutrophils % 70.2 % (42.8-82.8) 02/13/19 20:15 Lymphocytes % 20.9 % (8-40) 02/13/19 20:15 Monocytes % 6.5 % (3.8-10.2) 02/13/19 20:15 Eosinophils % 1.6 % (0-4.5) D 02/13/19 20:15 Basophils % 0.8 % (0-2.0) 02/13/19 20:15 Nucleated RBC % 0 % (0-0) 02/13/19 20:15 No leukocytosis. No anemia. No thrombocytopenia. CMP Sodium 135 mmol/L (136-145) L 02/13/19 20:15 Potassium 3.8 mmol/L (3.5-5.1) 02/13/19 20:15 Chloride 99 mmol/L (98-107) 02/13/19 20:15 Carbon Dioxide 28 mmol/L (21-32) 02/13/19 20:15 Anion Gap 7 MMOL/L (8-16) L 02/13/19 20:15 BUN 12 mg/dL (7-18) 02/13/19 20:15 Creatinine 1.0 mg/dL (0.55-1.3) 02/13/19 20:15 Est GFR (CKD-EPI)AfAm 97.08 02/13/19 20:15 Est GFR (CKD-EPI)NonAf 83.76 02/13/19 20:15 Random Glucose 133 mg/dL (74-106) H 02/13/19 20:15 Calcium 8.9 mg/dL (8.5-10.1) 02/13/19 20:15 Total Bilirubin 0.4 mg/dL (0.2-1) 02/13/19 20:15 AST 14 U/L (15-37) L 02/13/19 20:15 ALT 15 U/L (13-61) 02/13/19 20:15 Alkaline Phosphatase 76 U/L (45-117) 02/13/19 20:15 Troponin I < 0.02 ng/ml (0.00-0.05) 02/13/19 20:15 Total Protein 6.5 g/dl (6.4-8.2) 02/13/19 20:15 Albumin 3.6 g/dl (3.4-5.0) 02/13/19 20:15 Mild hyponatremia. No other electrolyte abnormalities. No CARLOS. No transaminitis. Troponin within normal limits. Results explained to patient. Pt informed of need to admit for further workup, pt agrees with plan. Pending admission. CXR my and Dr. Solis's view: septation to right lower lung. no infiltrate bilaterally. prominent matthew. right mid lung opacity. -Pending official report. 02/14/19 21:03 Official report: ill defined mid-right lung opacity, recommend CT. s/p right lung surgery. *DC/Admit/Observation/Transfer Diagnosis at time of Disposition: Malaise and fatigue, Pre-syncope - Discharge Dispostion Disposition: HOME Condition at time of disposition: Stable Decision to Admit order: Yes - Referrals - Patient Instructions - Post Discharge Activity
--- NOTE | 2019-02-13 20:22 | PDOC ---
Documentation entered by Yamini Nogueira SCRIBE, acting as scribe for José Miguel Solis MD. José Miguel Solis MD: This documentation has been prepared by the Jero lee Adrianna, SCRIBE, under my direction and personally reviewed by me in its entirety. I confirm that the documentation accurately reflects all work, treatment, procedures, and medical decision making performed by me. Attending Attestation - Resident Resident Name: Alesha Dwyer - ED Attending Attestation I have performed the following: I have examined & evaluated the patient, The case was reviewed & discussed with the resident, I agree w/resident's findings & plan, Exceptions are as noted - HPI HPI: The patient is a 58 year old male, with a significant PMH of chronic obstructive pulmonary disease, hypertension, hyperlipidemia, and small cell lung cancer (s/p resection, chemotherapy, and last radiation in December), who presents to the emergency department today complaining of lightheadedness for 3 weeks. Patient notes his lightheadedness has progressively worsened over the past 3 days. He reports that the lightheadedness is exacerbated with exertion, and intermittently presents while at rest. Patient endorses non-productive cough for the past 2 months. The patient denies chest pain, shortness of breath, headache and dizziness. Denies fever, chills, nausea, vomit, diarrhea and constipation. Denies dysuria, frequency, urgency and hematuria. Allergies: NKA Past surgical history: Right inguinal hernia repair Social history: Current smoker (1ppd), Marijuana use, occasional EtOH use PCP: Not on Staff 02/13/19 20:33 - Physicial Exam PE: 02/14/19 00:59 Agree with exam as documented by resident - Medical Decision Making EXAM#: TYPE/EXAM: RESULT: [id number] RAD/CHEST PA LAT History of small cell cancer, status post resection Impression: Status post lung surgery. Focal ill- defined opacity in the right midlung for which correlation with CT scan of the chest is needed to evaluate for pleural thickening versus a lung nodule. Reported By: Sunny De Paz MD 02/13/19 23:13 02/14/19 00:03 58M with pre-syncope, eval for arrythmia, acs, electrolyte disturbance, mets fu labs, cxr, ekg admit tele
[2019-02-13 20:33] LABS: MEAN PLT VOLUME 7.9 fl (7.5-11.1); WHITE BLOOD COUNT 8.6 K/mm3 (4.0-10.0)
[2019-02-13 20:35] LABS: BASO % 0.8 % (0-2.0); EOS % 1.6 % (0-4.5); HEMATOCRIT 41.3 % (35.4-49); HEMOGLOBIN 13.9 GM/dL (11.7-16.9); LYMPH % 20.9 % (8-40); MCH 29.7 pg (25.7-33.7); MCHC 33.5 g/dl (32.0-35.9); MEAN CELL VOLUME 88.4 fl (80-96); MONO % 6.5 % (3.8-10.2); NEUT % 70.2 % (42.8-82.8); PLATELET COUNT 315 K/MM3 (134-434); RBC 4.67 M/mm3 (4.00-5.60); RDW 14.7 % (11.9-15.9)
[2019-02-13 21:01] LABS: ALBUMIN 3.6 g/dl (3.4-5.0); BILIRUBIN,TOTAL 0.4 mg/dL (0.2-1); CALCIUM 8.9 mg/dL (8.5-10.1); POTASSIUM 3.8 mmol/L (3.5-5.1); TOT PROT 6.5 g/dl (6.4-8.2)
--- NOTE | 2019-02-13 21:53 | PN ---
Teaching Attending Note Name of Resident: Amilcar Garcia ATTENDING PHYSICIAN STATEMENT I saw and evaluated the patient. I reviewed the resident's note and discussed the case with the resident. I agree with the resident's findings and plan as documented. SUBJECTIVE: Patient is a 58 year old man with PMH of chronic obstructive pulmonary disease, Tobacco use, Medical Marijuana use, hypertension, hyperlipidemia, and small cell lung cancer (s/p RUL resection, chemotherapy, and last radiation in December 2018), who presents to the ER complaining of lightheadedness for 3 weeks. Patient notes his lightheadedness has progressively worsened over the past 3 days. He reports that the lightheadedness is exacerbated with exertion, and intermittently presents while at rest. Patient has had non-productive cough for the past 2 months. The patient denies chest pain, shortness of breath, headache , fever, chills, nausea, vomit, diarrhea, constipation, dysuria, frequency, urgency or hematuria. OBJECTIVE: Alert and not orthostatic Vital Signs Period Temp Pulse Resp BP Sys/Rhodes Pulse Ox Last 24 Hr 98.5 F 76 20 125/77 99 HEENT: No Jaundice, eye redness or discharge, PERRLA, EOMI. Normocephalic, atraumatic. External ears are normal and hearing is grossly intact. No nasal discharge. Neck: Supple, nontender. No palpable adenopathy or thyromegaly. No JVD Chest: Good effort. Clear to auscultation and percussion. Heart: Regular. No S3, rub or murmur Abdomen: Not distended, soft, nontender and no HSM. No rebound or guarding. Normal bowel sounds. Ext: Peripheral pulses intact. No leg edema. Skin: Warm and dry. No petechiae, rash or ecchymosis. Neuro: Alert. Oriented x3. CN 2-12 grossly intact. Sensation grossly intact in all four extremities and DTR are symmetric. Psych: Appropriate mood and affect. Good insight. Abnormal Lab Results 02/13/19 20:15 Sodium 135 L Anion Gap 7 L Random Glucose 133 H AST 14 L ASSESSMENT AND PLAN: 1. Presyncope - Etiology unclear. Will get head CT to rule out metastasis or intracranial lesion. EKG shows NSR with no significant ST-T wave changes. Urinalysis pending. Will give IV NS, get ECHO, urine toxicology and monitor overnight in telemetry. CXR shows a focal ill-defined opacity in right midlung. A chest CT is recommended for clarification. Continue comprehensive care for stage 4 lung cancer and implement fall precautions. 2. Tobacco Use Counseled on risks associated with tobacco use. We will provide patient all the necessary assistance to facilitate smoking cessation and prescribe Nicotine patch. 3. Hypertension - Restart outpatient antihypertensive drugs and revise regimen to ensure smooth [id number] good BP control. Nonpharmacologic measures to control hypertension like weight loss, salt restriction and exercise discussed. 4. DVT prophylaxis - Lovenox 40 mg SQ q 24 hours. 5. Advance directives - Full code
[2019-02-13] MEDS ORDERED: SODIUM CHLORIDE 1,000 ML IV STA (23:40)
[2019-02-13] MEDS ORDERED: SODIUM CHLORIDE 1,000 ML IV SCH (23:45)
--- NOTE | 2019-02-13 23:56 | HP ---
CHIEF COMPLAINT: lightheadedness PCP: Dr. Dooley HISTORY OF PRESENT ILLNESS: Patient is a 58 yo M with a PMHx of Stage 4 Small cell cancer (s/p resection, chemo, radiation), COPD, HTN, HLD, presented with 3 weeks of dizziness and nausea. He says the dizziness has been worsening in the last 5 days. He also said he's developed double vision that comes and goes which also started 5 days ago. He says his dizziness gets worse when getting up too quickly from a seated position and gets better when sitting back down. He says this never happened to him prior to 3 weeks ago. He says he drinks an appropriate amount of fluids every day and does not feel dehydrated. He also has a dry cough which he says is chronic. His last echo and stress test were negative (01/23). He denies headaches, numbness, tingling, vomiting, unsteady gait, chills, fevers, SOB. Patient denies a cardiac history. Recent Travel: denies PAST MEDICAL HISTORY: 58 yo M with a PMHx of Stage 4 Small cell cancer (s/p resection, chemo, radiation last in December), COPD, HTN, HLD PAST SURGICAL HISTORY: R Lung resection upper third lobe Social History: Smokin pack every 2 days Alcohol: quit Drugs: quit Allergies No Known Allergies Allergy (Verified 01/14/18 07:15) HOME MEDICATIONS: REVIEW OF SYSTEMS CONSTITUTIONAL: Absent: fever, chills, diaphoresis, generalized weakness, malaise, loss of appetite, weight change HEENT: Absent: rhinorrhea, nasal congestion, throat pain, throat swelling, difficulty swallowing, mouth swelling, ear pain, eye pain, visual changes CARDIOVASCULAR: lightheadedness Absent: chest pain, syncope, palpitations, irregular heart rate, peripheral edema RESPIRATORY: cough Absent: shortness of breath, dyspnea with exertion, orthopnea, wheezing, stridor , hemoptysis GASTROINTESTINAL: Absent: abdominal pain, abdominal distension, nausea, vomiting, diarrhea, constipation, melena, hematochezia GENITOURINARY: Absent: dysuria, frequency, urgency, hesitancy, hematuria, flank pain, genital pain MUSCULOSKELETAL: Absent: myalgia, arthralgia, joint swelling, back pain, neck pain SKIN: Absent: rash, itching, pallor NEUROLOGIC: dizziness Absent: headache, focal weakness or paresthesias, unsteady gait, seizure, mental status changes, bladder or bowel incontinence PSYCHIATRIC: depression. denies suicidal ideation Absent: anxiety, suicidal or homicidal ideation, hallucinations. PHYSICAL EXAMINATION Vital Signs - 24 hr 02/13/19 02/13/19 19:28 20:55 Temperature 98.5 F Pulse Rate 76 78 Respiratory 20 Rate Blood Pressure 125/77 O2 Sat by Pulse 99 99 Oximetry (%) GENERAL: Awake, alert, and fully oriented, in no acute distress. HEAD: Normal with no signs of trauma. EYES: Pupils equal, round and reactive to light, extraocular movements intact, sclera anicteric, conjunctiva clear. EARS, NOSE, THROAT: oropharynx clear without exudates. Moist mucous membranes. NECK: Normal range of motion, supple without lymphadenopathy, JVD, or masses. LUNGS: Breath sounds equal, clear to auscultation bilaterally. No wheezes, and no crackles. HEART: Regular rate and rhythm, normal S1 and S2 without murmur, rub or gallop. ABDOMEN: Soft, nontender, not distended, normoactive bowel sounds, no guarding, no rebound, no masses. MUSCULOSKELETAL: Normal range of motion at all joints. No bony deformities or tenderness. No CVA tenderness. UPPER EXTREMITIES: 2+ pulses, warm, well-perfused. No peripheral edema. LOWER EXTREMITIES: 2+ pulses, warm, well-perfused. No calf tenderness. No peripheral edema. NEUROLOGICAL: Cranial nerves II-XII intact. Normal speech. Normal gait. PSYCHIATRIC: Cooperative. Good eye contact. Appropriate mood and affect. Laboratory Results - last 24 hr 02/13/19 02/13/19 02/13/19 20:15 20:15 20:15 WBC 8.6 RBC 4.67 Hgb 13.9 Hct 41.3 MCV 88.4 MCH 29.7 MCHC 33.5 RDW 14.7 Plt Count 315 D MPV 7.9 Absolute Neuts (auto) 6.0 Neutrophils % 70.2 Lymphocytes % 20.9 Monocytes % 6.5 Eosinophils % 1.6 D Basophils % 0.8 Nucleated RBC % 0 Sodium 135 L Potassium 3.8 Chloride 99 Carbon Dioxide 28 Anion Gap 7 L BUN 12 Creatinine 1.0 Est GFR (CKD-EPI)AfAm 97.08 Est GFR (CKD-EPI)NonAf 83.76 Random Glucose 133 H Calcium 8.9 Total Bilirubin 0.4 AST 14 L ALT 15 Alkaline Phosphatase 76 Troponin I < 0.02 Total Protein 6.5 Albumin 3.6 ASSESSMENT/PLAN: 58 yo M with a PMHx of Stage 4 Small cell cancer (s/p resection, chemo, radiation), COPD, HTN, HLD, presented with 3 weeks of dizziness and nausea. #Presyncope -Unclear etiology. -Head CT to rule out mets or lesions. -Orthostatic VS negative -u/a -tele monitoring -Echo -IV fluids. 1 L Bolus NS -Cont @83ml/hour maintenence #HTN -cont. home Amlodipine #Tobacco use -nicotine patch -counseled on the importance of quitting smoking. #Depression -cont. home wellbutrin #FEN -IV fluids NS @ 83 -monitor -sodium controlled #DVT ppx -EAB dispo: obs-tele Visit type - Emergency Visit Emergency Visit: Yes ED Registration Date: 02/13/19 Care time: The patient presented to the Emergency Department on the above date and was hospitalized for further evaluation of their emergent condition. - New Patient This patient is new to me today: Yes Date on this admission: 02/16/19 - Critical Care Critical Care patient: No
[2019-02-14] MEDS ORDERED: ALBUTEROL SO4 0.083% IH SOL 2.5 MG/3 ML VIAL.NEB. NEB PRN (00:30)
[2019-02-14] MEDS ORDERED: NICOTINE POLACRILEX 2 MG GUM BUC PRN (00:33)
[2019-02-14 04:11] VITALS: BMI 23.7
[2019-02-14 05:55] VITALS: TEMP 98.2
[2019-02-14 07:16] LABS: BASO % 1.2 % (0-2.0); EOS % 2.8 % (0-4.5); HEMATOCRIT 40.8 % (35.4-49); HEMOGLOBIN 13.5 GM/dL (11.7-16.9); LYMPH % 26.7 % (8-40); MCH 29.2 pg (25.7-33.7); MCHC 33.2 g/dl (32.0-35.9); MEAN PLT VOLUME 8.4 fl (7.5-11.1); NEUT % 60.3 % (42.8-82.8); PLATELET COUNT 324 K/MM3 (134-434); RBC 4.63 M/mm3 (4.00-5.60); RDW 14.4 % (11.9-15.9); WHITE BLOOD COUNT 7.9 K/mm3 (4.0-10.0)
--- NOTE | 2019-02-14 07:55 | PN ---
Physical Exam: SUBJECTIVE: Patient seen and examined OBJECTIVE: Vital Signs Period Temp Pulse Resp BP Sys/Rhodes Pulse Ox Last 24 Hr 98.2 F-98.9 F 60-78 16-20 119-136/76-100 95-99 GENERAL: The patient is awake, alert, and fully oriented, in no acute distress. HEAD: Normal with no signs of trauma. EYES: PERRL, extraocular movements intact, sclera anicteric, conjunctiva clear. No ptosis. ENT: Ears normal, nares patent, oropharynx clear without exudates, moist mucous membranes. NECK: Trachea midline, full range of motion, supple. LUNGS: Breath sounds equal, clear to auscultation bilaterally, no wheezes, no crackles, no accessory muscle use. HEART: Regular rate and rhythm, S1, S2 without murmur, rub or gallop. ABDOMEN: Soft, nontender, nondistended, normoactive bowel sounds, no guarding, no rebound, no hepatosplenomegaly, no masses. EXTREMITIES: 2+ pulses, warm, well-perfused, no edema. NEUROLOGICAL: Cranial nerves II through XII grossly intact. Normal speech, gait not observed. PSYCH: Normal mood, normal affect. SKIN: Warm, dry, normal turgor, no rashes or lesions noted Laboratory Results - last 24 hr 02/13/19 02/13/19 02/13/19 20:15 20:15 20:15 WBC 8.6 RBC 4.67 Hgb 13.9 Hct 41.3 MCV 88.4 MCH 29.7 MCHC 33.5 RDW 14.7 Plt Count 315 D MPV 7.9 Absolute Neuts (auto) 6.0 Neutrophils % 70.2 Lymphocytes % 20.9 Monocytes % 6.5 Eosinophils % 1.6 D Basophils % 0.8 Nucleated RBC % 0 Sodium 135 L Potassium 3.8 Chloride 99 Carbon Dioxide 28 Anion Gap 7 L BUN 12 Creatinine 1.0 Est GFR (CKD-EPI)AfAm 97.08 Est GFR (CKD-EPI)NonAf 83.76 Random Glucose 133 H Calcium 8.9 Total Bilirubin 0.4 AST 14 L ALT 15 Alkaline Phosphatase 76 Troponin I < 0.02 Total Protein 6.5 Albumin 3.6 02/14/19 05:30 WBC 7.9 RBC 4.63 Hgb 13.5 Hct 40.8 MCV 88.0 MCH 29.2 MCHC 33.2 RDW 14.4 Plt Count 324 MPV 8.4 Absolute Neuts (auto) 4.8 Neutrophils % 60.3 Lymphocytes % 26.7 D Monocytes % 9.0 Eosinophils % 2.8 Basophils % 1.2 Nucleated RBC % 0 Sodium Potassium Chloride Carbon Dioxide Anion Gap BUN Creatinine Est GFR (CKD-EPI)AfAm Est GFR (CKD-EPI)NonAf Random Glucose Calcium Total Bilirubin AST ALT Alkaline Phosphatase Troponin I Total Protein Albumin Active Medications Generic Name Dose Route Start Last Admin Trade Name Freq PRN Reason Stop Dose Admin Albuterol Sulfate 1 amp 02/14/19 00:30 Ventolin 0.083% Nebulizer Soln - NEB Q6H PRN SHORT OF BREATH/WHEEZING Amlodipine Besylate 2.5 mg 02/14/19 10:00 Norvasc - PO DAILY JAYSHREE Atorvastatin Calcium 40 mg 02/14/19 22:00 Lipitor - PO HS JAYSHREE Bupropion HCl 150 mg 02/14/19 10:00 Wellbutrin Xl - PO DAILY JAYSHREE Sodium Chloride 1,000 mls @ 83 mls/hr 02/13/19 23:45 02/14/19 01:09 Normal Saline - IV 83 mls/hr ASDIR JAYSHREE Administration Nicotine Polacrilex 2 mg 02/14/19 00:33 Nicorette Gum - BUC Q2H PRN WITHDRAWAL(CONT SUBST) ASSESSMENT/PLAN: 58 yo M with a PMHx of Stage 4 Small cell cancer (s/p resection, chemo, radiation), COPD, HTN, HLD, presented with 3 weeks of dizziness and nausea. #Presyncope -Unclear etiology. -Head CT to rule out mets or lesions. -Orthostatic VS negative -u/a -tele monitoring -Echo -IV fluids. 1 L Bolus NS -Cont @83ml/hour maintenence #HTN -cont. home Amlodipine #Tobacco use -nicotine patch -counseled on the importance of quitting smoking. #Depression -cont. home wellbutrin #FEN -IV fluids NS @ 83 -monitor -sodium controlled
[2019-02-14 07:59] LABS: ALBUMIN 3.1 g/dl (3.4-5.0); BILIRUBIN,TOTAL 0.6 mg/dL (0.2-1); CALCIUM 8.3 mg/dL (8.5-10.1); CREATININE 0.8 mg/dL (0.55-1.3); MAGNESIUM 2.3 mg/dL (1.8-2.4); POTASSIUM 4.1 mmol/L (3.5-5.1); TOT PROT 5.6 g/dl (6.4-8.2)
[2019-02-14 09:35] VITALS: BP 124/66; PULSE 70
[2019-02-14] MEDS ORDERED: PT OWN MED DRAWER 7, Y5N ONE (09:44)
[2019-02-14] MEDS ORDERED: amLODIPine BESYLATE 5 MG TABLET (FP) PO SCH (10:00)
--- NOTE | 2019-02-14 12:14 | ECHO ---
Name: OLVIN AQUINO Exam:Adult Echocardiogram Study Date: 02/14/2019 07:28 AM Age: 58 yrs Reason For Study: presyncope Height: 68 in Weight: 165 lb BSA: 1.9 m2 MMode/2D Measurements & Calculations IVSd: 1.1 cm Ao root diam: 3.4 cm LVIDd: 4.7 cm LA dimension: 2.6 cm LVIDs: 3.0 cm LVPWd: 0.89 cm EDV(Teich): 100.6 ml LVOT diam: 2.0 cm ESV(Teich): 35.2 ml LAV (MOD-bp): 23.2 ml Doppler Measurements & Calculations MV E max eric: 45.1 cm/sec Ao V2 max: 127.6 cm/sec MV A max eric: 67.4 cm/sec Ao max P.5 mmHg MV E/A: 0.67 MV dec time: 0.24 sec JAMIE(V,D): 2.0 cm2 LV V1 max P.7 mmHg TR max eric: 314.9 cm/sec LV V1 max: 82.5 cm/sec TR max P.7 mmHg PA V2 max: 95.0 cm/sec Med Peak E' Eric: 7.5 cm/sec PA max P.6 mmHg Med E/e': 6.0 Lat Peak E' Eric: 12.8 cm/sec Lat E/e': 3.5 PI Vmax: 151.3 cm/sec Left Ventricle Left ventricular systolic function is borderline reduced. Ejection Fraction = 50%. The transmitral sp ectral Doppler flow pattern is suggestive of impaired LV relaxation. Septal motion is consistent with conduc tion abnormality. Right Ventricle The right ventricle is normal in size and function. Atria Normal left and right atrial size and function. Mitral Valve The mitral valve is normal in structure and function. There is no mitral valve stenosis. There is tra ce mitral regurgitation. Tricuspid Valve The tricuspid valve is not well visualized, but is grossly normal. There is mild tricuspid regurgitat ion. Right ventricular systolic pressure is elevated at 30-40mmHg. Aortic Valve The aortic valve opens well. No hemodynamically significant valvular aortic stenosis. No aortic regur gitation is present. Pulmonic Valve The pulmonic valve is not well seen, but is grossly normal. There is no pulmonic valvular stenosis. M ild pulmonic valvular regurgitation. Great Vessels The aortic root is normal size. Pericardium/Pleura There is no pericardial effusion. Interpretation Summary Septal motion is consistent with conduction abnormality. Left ventricular systolic function is borderline reduced. Ejection Fraction = 50%. The right ventricle is normal in size and function. The transmitral spectral Doppler flow pattern is suggestive of impaired LV relaxation. There is mild tricuspid regurgitation. Right ventricular systolic pressure is elevated at 30-40mmHg. There is no pericardial effusion. MD Matta *Luke 02/14/2019 12:13 PM
--- NOTE | 2019-02-14 14:20 | DS ---
Physical Exam: SUBJECTIVE: Patient seen and examined at bedside- no acute events ovrnight; patient states that he is feeling better and is not as dizzy- he denies any CP/ SOB/N/V- he is no longer having double vision OBJECTIVE: Vital Signs Period Temp Pulse Resp BP Sys/Rhodes Pulse Ox Last 24 Hr 98.2 F-98.9 F 60-78 16-20 119-136/66-100 95-99 PHYSICAL EXAM GENERAL: The patient is awake, alert, and fully oriented, in no acute distress. EYES: PEERLA EOMI no scleral icterus . NECK: no JVD ; no lymphadenopathy LUNGS:CTA BL; no rales, rhonci or wheezing HEART: Regular rate and rhythm, S1, S2 without murmur, rub or gallop. ABDOMEN: Soft, nontender, nondistended, normoactive bowel sounds, no guarding, no rebound, no hepatosplenomegaly, no masses. EXTREMITIES: 2+ pulses, warm, well-perfused, no edema. NEUROLOGICAL: Cranial nerves II through XII grossly intact. Normal speech, gait not observed. 5/5 strength UE and LE B/L sensattion intact throughout PSYCH: Normal mood, normal affect. SKIN: Warm, dry, normal turgor, no rashes or lesions noted. LABS Laboratory Results - last 24 hr 02/13/19 02/13/19 02/13/19 20:15 20:15 20:15 WBC 8.6 RBC 4.67 Hgb 13.9 Hct 41.3 MCV 88.4 MCH 29.7 MCHC 33.5 RDW 14.7 Plt Count 315 D MPV 7.9 Absolute Neuts (auto) 6.0 Neutrophils % 70.2 Lymphocytes % 20.9 Monocytes % 6.5 Eosinophils % 1.6 D Basophils % 0.8 Nucleated RBC % 0 Sodium 135 L Potassium 3.8 Chloride 99 Carbon Dioxide 28 Anion Gap 7 L BUN 12 Creatinine 1.0 Est GFR (CKD-EPI)AfAm 97.08 Est GFR (CKD-EPI)NonAf 83.76 Random Glucose 133 H Calcium 8.9 Phosphorus Magnesium Total Bilirubin 0.4 AST 14 L ALT 15 Alkaline Phosphatase 76 Troponin I < 0.02 Total Protein 6.5 Albumin 3.6 02/14/19 02/14/19 05:30 05:30 WBC 7.9 RBC 4.63 Hgb 13.5 Hct 40.8 MCV 88.0 MCH 29.2 MCHC 33.2 RDW 14.4 Plt Count 324 MPV 8.4 Absolute Neuts (auto) 4.8 Neutrophils % 60.3 Lymphocytes % 26.7 D Monocytes % 9.0 Eosinophils % 2.8 Basophils % 1.2 Nucleated RBC % 0 Sodium 137 Potassium 4.1 Chloride 105 Carbon Dioxide 25 Anion Gap 7 L BUN 15 Creatinine 0.8 Est GFR (CKD-EPI)AfAm 115.74 Est GFR (CKD-EPI)NonAf 99.86 Random Glucose 98 Calcium 8.3 L Phosphorus 4.0 Magnesium 2.3 Total Bilirubin 0.6 AST 6 L ALT 13 Alkaline Phosphatase 68 Troponin I Total Protein 5.6 L Albumin 3.1 L imaging: chest XRAY: Status post lung surgery. Focal ill-defined opacity in the right midlung for which correlation with CT scan of the chest is needed to evaluate for pleural thickening versus a lung nodule. Head CT: Normal computed tomography of the brain without/with IV contrast enhancement. No evidence of acute intracranial hemorrhage, edema, midline shift, mass effect , blood-brain barrier defect, enhancing lesion. Intact calvarium, no lytic, or blastic lesions are seen. No CT evidence of acute territorial ischemic changes. 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 He says the dizziness has been worsening in the last 5 days. He also said he's developed double vision that comes and goes which also started 5 days ago. He says his dizziness gets worse when getting up too quickly from a seated position and gets better when sitting back down. He says this never happened to him prior to 3 weeks ago. He says he drinks an appropriate amount of fluids every day and does not feel dehydrated. He also has a dry cough which he says is chronic. His last echo and stress test were negative (01/23). He denies headaches, numbness, tingling, vomiting, unsteady gait, chills, fevers, SOB. Patient denies a cardiac history. patients vitals and labs were stable on admission. he was orthostatic negative on his vitals. he was given fluids and his dizzness improved. his head CT and chest xray showed no acute pathology. he did an echo with the results above with completely normal EKG- personally spoke with [facility], Dr. Dejesus who said that this could be followed up as an outpatient. patient was discharged home with cardiac follow up in addition to see his PCP and get a CT scan of the chest due to the spot found in right midlung field. Date of Discharge: 02/14/19 Minutes to complete discharge: 35 Discharge Summary Reason For Visit: HISTORY OF MALIGNANT NEOPLASM OF LUNG, PRE-SYNCOPE Current Active Problems Malaise and fatigue (Acute) Pre-syncope (Acute) Condition: Stable - Instructions Diet, Activity, Other Instructions: You came to the hospital with complaints of worsening dizziness/nausea and double vision that had been getting worse over the course of the past 5 days. We did a cat scan of your head which was normal. We did an echocardiogram of your heart which showed a slight conduction abnormality for which we are referring you to a [facility] to see on the outpatient setting for further workup . Your symptoms improved and you were discharged home. Please resume all of your home medications Please follow up with your primary care physician Dr. Gambino within one week Please follow up with Dr. Dejesus, the [facility], within one week On your chest XRAY, there was a spot in your right lung field was seen- please ask your primary care physician to refer you for a CT scan of the chest to further evaluate this. Please keep yourself adequately hydrated as this may have led to some of your presenting symptoms. *if you begin to experience worsening dizziness, vision changes, chest pains, trouble breathing, nausea/vomiting please return to the emergency room immediately Referrals: Shivam Gambino [Other] Rusty Dejesus MD [Staff Physician] - 1 Week Disposition: HOME - Home Medications Comprehensive Discharge Medication List: Ambulatory Orders Albuterol Sulfate Inhaler - [Ventolin HFA Inhaler -] 2 inh PO PRN 02/14/19 Amlodipine Besylate 2.5 mg PO DAILY 02/14/19 Atorvastatin Ca [Lipitor] 40 mg PO DAILY 02/14/19 Bupropion HCl [Wellbutrin Xl -] 150 mg PO DAILY 02/14/19 Nicotine Polacrilex [Nicotine Lozenge] 2 mg BC PRN 02/14/19 Tiotropium [place] [Spiriva Respimat] 5 mcg IH DAILY 02/14/19 Problem List - Problems (1) Pre-syncope Code(s): R55 - SYNCOPE AND COLLAPSE This patient is new to me today: Yes Date on this admission: 02/14/19 Emergency Visit: Yes ED Registration Date: 02/13/19 Care time: The patient presented to the Emergency Department on the above date and was hospitalized for further evaluation of their emergent condition. Critical Care patient: No - Discharge Referral Referred to [facility] No
--- NOTE | 2019-02-14 14:52 | EKG ---
Test Reason : Blood Pressure : / mmHG Vent. Rate : 062 BPM Atrial Rate : 062 BPM P-R Int : 148 ms QRS Dur : 076 ms QT Int : 408 ms P-R-T Axes : 055 030 051 degrees QTc Int : 414 ms NORMAL SINUS RHYTHM NORMAL ECG WHEN COMPARED WITH ECG OF 13-FEB-2019 20:11, NO SIGNIFICANT CHANGE WAS FOUND Confirmed by PATRICIA SIN MD ([id number]) on 02/14/2019 2:52:01 PM Referred By: JACOB MIN Confirmed By:PATRICIA SIN MD
--- NOTE | 2019-02-14 14:55 | EKG ---
Test Reason : Blood Pressure : / mmHG Vent. Rate : 076 BPM Atrial Rate : 076 BPM P-R Int : 152 ms QRS Dur : 076 ms QT Int : 382 ms P-R-T Axes : 067 018 059 degrees QTc Int : 429 ms NORMAL SINUS RHYTHM NONSPECIFIC T WAVE ABNORMALITY ABNORMAL ECG WHEN COMPARED WITH ECG OF 14-JAN-2018 08:20, NO SIGNIFICANT CHANGE WAS FOUND Confirmed by PATRICIA SIN MD ([id number]) on 02/14/2019 2:55:35 PM Referred By: Confirmed By:PATRICIA SIN MD
--- NOTE | 2019-02-14 17:22 | PN ---
Teaching Attending Note Name of Resident: Anita Page ATTENDING PHYSICIAN STATEMENT I saw and evaluated the patient. I reviewed the resident's note and discussed the case with the resident. I agree with the resident's findings and plan as documented. SUBJECTIVE: Ambulating without dizziness. No chest pain/palpitations. No nausea/ vomiting. No limb numbness/weakness. OBJECTIVE: Afebrile, Hemodynamically Stable Last Vital Signs Temp Pulse Resp BP Pulse Ox 98.2 F 70 17 124/66 98 02/14/19 09:33 02/14/19 09:33 02/14/19 09:33 02/14/19 09:33 02/14/19 09:34 HEENT - Atraumatic, Normocephalic. Heart - S1, S2, RRR Lungs - clear to auscultation Abdomen - Soft, non-tender. Bowel Sounds normal. Neuro - AAO x3. Tone/Power normal all extremities. Laboratory Results - last 24 hr 02/13/19 02/13/19 02/13/19 20:15 20:15 20:15 WBC 8.6 RBC 4.67 Hgb 13.9 Hct 41.3 MCV 88.4 MCH 29.7 MCHC 33.5 RDW 14.7 Plt Count 315 D MPV 7.9 Absolute Neuts (auto) 6.0 Neutrophils % 70.2 Lymphocytes % 20.9 Monocytes % 6.5 Eosinophils % 1.6 D Basophils % 0.8 Nucleated RBC % 0 Sodium 135 L Potassium 3.8 Chloride 99 Carbon Dioxide 28 Anion Gap 7 L BUN 12 Creatinine 1.0 Est GFR (CKD-EPI)AfAm 97.08 Est GFR (CKD-EPI)NonAf 83.76 Random Glucose 133 H Calcium 8.9 Phosphorus Magnesium Total Bilirubin 0.4 AST 14 L ALT 15 Alkaline Phosphatase 76 Troponin I < 0.02 Total Protein 6.5 Albumin 3.6 02/14/19 02/14/19 05:30 05:30 WBC 7.9 RBC 4.63 Hgb 13.5 Hct 40.8 MCV 88.0 MCH 29.2 MCHC 33.2 RDW 14.4 Plt Count 324 MPV 8.4 Absolute Neuts (auto) 4.8 Neutrophils % 60.3 Lymphocytes % 26.7 D Monocytes % 9.0 Eosinophils % 2.8 Basophils % 1.2 Nucleated RBC % 0 Sodium 137 Potassium 4.1 Chloride 105 Carbon Dioxide 25 Anion Gap 7 L BUN 15 Creatinine 0.8 Est GFR (CKD-EPI)AfAm 115.74 Est GFR (CKD-EPI)NonAf 99.86 Random Glucose 98 Calcium 8.3 L Phosphorus 4.0 Magnesium 2.3 Total Bilirubin 0.6 AST 6 L ALT 13 Alkaline Phosphatase 68 Troponin I Total Protein 5.6 L Albumin 3.1 L Discharge Medications Medication Instructions Recorded Albuterol Sulfate Inhaler - 2 inh PO PRN 02/14/19 [Ventolin HFA Inhaler -] Amlodipine Besylate 2.5 mg PO DAILY 02/14/19 Atorvastatin Ca [Lipitor] 40 mg PO DAILY 02/14/19 Bupropion HCl [Wellbutrin Xl -] 150 mg PO DAILY 02/14/19 Nicotine Polacrilex [Nicotine 2 mg BC PRN 02/14/19 Lozenge] Tiotropium [place] [Spiriva 5 mcg IH DAILY 02/14/19 Respimat] ASSESSMENT/PLAN 58 year old male with history of Stage 4 Small cell cancer (s/p resection, CTx, RTx), COPD, HTN, HLD, presents with 3 weeks of intermittent dizziness and blurry vision, with associated nausea, worse on standing up from a sitting position. Recent echo and stress test 01/23 were negative. 1. Lightheadedness/Presyncope possibly secondary to dehydration, resolved with IV hydration Orthostatic Vitals negative. No focal or lateralizing neurological signs. CT Head - no acute intracranial findings, no mets. Echo - septal motion abnormality consistent with conduction defect. ECG - SR No telemonitoring events. Discussed with Cardiology, Dr. Dejesus - will follow as out-patient. 2. HTN - Continue Amlodipine. 3. Depression - Stable - Continue Wellbutrin 4. COPD - Stable. Continue Tiotropium, Albuterol prn. Ambulating well without neurological symptoms/signs. Medically and hemodynamically stable for discharge.
[2019-02-14] MEDS ORDERED: ATORVASTATIN CA 40 MG TABLET (FP) PO SCH (22:00)
== END 2019-02-14 15:10 | disposition home or self-care (01) ==
LOC: JER 19:22 → INTOOBSV 21:10 → JERBED 21:10 → J4W 02-14 03:22
PROVIDERS: ADMIT Internal Medicine
PROC: 3E0337Z Introduction of Electrolytic and Water Balance Substance into Peripheral Vein, Percutaneous Approach (ICD-10-PCS; principal; 2019-02-13)
DX: R55 Syncope and collapse (principal); R53.1 Weakness; R42 Dizziness and giddiness; I10 Essential (primary) hypertension; E78.5 Hyperlipidemia, unspecified; J44.9 Chronic obstructive pulmonary disease, unspecified; F17.210 Nicotine dependence, cigarettes, uncomplicated; F32.9 Major depressive disorder, single episode, unspecified; Z85.118 Personal history of other malignant neoplasm of bronchus and lung; Z92.21 Personal history of antineoplastic chemotherapy; Z92.3 Personal history of irradiation
CPT/HCPCS: 36415; 70470-TC; 71046-TC-FY; 80053; 83735; 84100; 84484; 85025; 93005; 93010; 93306-TC; 96360; 97116-GP; 97161-GP; 99285-25; G0378; J7030

== ENCOUNTER 2020-12-10 19:22 | Emergency (ER) | payer OTHER ==
[2020-12-10 19:54] VITALS: BMI 25.8
[2020-12-10] MEDS ORDERED: ACETAMINOPHEN 325 MG TABLET (FP) PO ONE (21:06)
[2020-12-10] MEDS ORDERED: ACETAMINOPHEN 325 MG TABLET (FP) ONE (21:21)
[2020-12-10 21:48] LABS: BASO % 0.2 % (0-2.0); EOS % 2.5 % (0-4.5); HEMATOCRIT 46.2 % (35.4-49); HEMOGLOBIN 15.4 GM/dL (11.7-16.9); LYMPH % 19.1 % (8-40); MCH 29.2 pg (25.7-33.7); MCHC 33.3 g/dl (32.0-35.9); MEAN CELL VOLUME 87.7 fl (80-96); MEAN PLT VOLUME 8.5 fl (7.5-11.1); NEUT % 72.2 % (42.8-82.8); PLATELET COUNT 350 K/MM3 (134-434); RBC 5.27 M/mm3 (4.00-5.60); WHITE BLOOD COUNT 11.6 K/mm3 (4.0-10.0)
[2020-12-10 21:55] LABS: INR 1.02 (0.83-1.09); PROTHROMBIN TIME (PATIENT) 12.5 SEC (9.7-13.0)
[2020-12-10 22:01] VITALS: TEMP 98
[2020-12-10 22:09] LABS: CHLORIDE 104 mmol/L (98-107); POTASSIUM 4.1 mmol/L (3.5-5.1); SODIUM 138 mmol/L (136-145)
[2020-12-10 22:11] LABS: ALBUMIN 4.1 g/dl (3.4-5.0); ANION GAP 6 MMOL/L (8-16); BLOOD UREA NITROGEN 20.6 mg/dL (7-18); CALCIUM 9.3 mg/dL (8.5-10.1); CO2 28 mmol/L (21-32); GLUCOSE,RANDOM 90 mg/dL (74-106); MAGNESIUM 2.1 mg/dL (1.8-2.4)
[2020-12-10 22:14] LABS: CREATININE 1.2 mg/dL (0.55-1.3); SGOT/AST 15 U/L (15-37); SGPT/ALT 26 U/L (13-61)
[2020-12-10 22:16] LABS: BILIRUBIN,TOTAL 0.3 mg/dL (0.2-1); TOT PROT 7.7 g/dl (6.4-8.2)
[2020-12-10 22:17] LABS: ALK PHOS 106 U/L (45-117)
[2020-12-10 22:19] LABS: N-TERMINAL BNP 87.7 pg/ml (5-125)
[2020-12-11 01:39] VITALS: BP 129/73; PULSE 79
== END 2020-12-11 01:39 | disposition home or self-care (01) ==
LOC: JER 19:22
DX: R07.9 Chest pain, unspecified (principal); J44.9 Chronic obstructive pulmonary disease, unspecified
CPT/HCPCS: 36415; 71046-TC-FY; 71250-TC; 80053; 82550; 83735; 83880; 84484; 85025; 85379; 85610; 85730; 93005; 93010; 99285-25; C9803; U0003

== ENCOUNTER 2022-12-20 04:15 | Day surgery (SDC) | payer OTHER ==
[2022-12-18 14:26] VITALS: BMI 25.0
[~2022-12-20 04:15] MED LIST: ACETAMINOPHEN 325 MG TABLET (FP) PO PRN; CYCLOPENTOLATE HCL 1% OPHTH SOLN 2 ML BOTTLE OP SCH; KETOROLAC TROMETHAMINE 0.5% EYE DROP 1 DROP DROPS OP SCH; OFLOXACIN 0.3% OPHTHALMIC SOLUTION 5 ML BOTTLE OP SCH; PHENYLEPHRINE 2.5% OPHTH SOLN 15 ML BOTTLE OP SCH; TROPICAMIDE 1% OPHTH SOLN 15 ML BOTTLE OP SCH
[2022-12-20] MEDS ORDERED: TROPICAMIDE 1% OPHTH SOLN 15 ML BOTTLE ONE (06:44)
[2022-12-20] MEDS ORDERED: PHENYLEPHRINE 2.5% OPTHALMIC DROP 2ML BOTTLE ONE (06:44)
[2022-12-20] MEDS ORDERED: KETOROLAC TROMETHAMINE 0.5% EYE DROP 1 DROP DROPS ONE (06:44)
[2022-12-20] MEDS ORDERED: OFLOXACIN 0.3% OPHTHALMIC SOLUTION 5 ML BOTTLE ONE (06:44)
[2022-12-20] MEDS ORDERED: CYCLOPENTOLATE HCL 1% OPHTH SOLN 2 ML BOTTLE ONE (06:44)
[2022-12-20] MEDS ORDERED: TROPICAMIDE 1% OPHTH SOLN 15 ML BOTTLE OD ONE ×3 (06:50→07:00)
[2022-12-20] MEDS ORDERED: PHENYLEPHRINE 2.5% OPTHALMIC DROP BOTTLE OD ONE (06:50)
[2022-12-20] MEDS ORDERED: OFLOXACIN 0.3% OPHTHALMIC SOLUTION 5 ML BOTTLE OD ONE ×3 (06:50→07:00)
[2022-12-20] MEDS ORDERED: CYCLOPENTOLATE HCL 1% OPHTH SOLN 2 ML BOTTLE OD ONE ×3 (06:50→07:00)
[2022-12-20] MEDS ORDERED: KETOROLAC TROMETHAMINE 0.5% EYE DROP 1 DROP DROPS OD ONE ×3 (06:50→07:00)
[2022-12-20] MEDS ORDERED: PHENYLEPHRINE 2.5% OPHTH SOLN 15 ML BOTTLE OD ONE ×2 (06:55→07:00)
[2022-12-20] MEDS ORDERED: SUCCINYLCHOLINE CHLORIDE 200 MG/10 ML SYRINGE ONE (07:26)
[2022-12-20] MEDS ORDERED: PROPOFOL 20 ML ONE (07:26)
[2022-12-20] MEDS ORDERED: TETRACAINE 0.5% OPHTH SOLN 2 ML BOTTLE ONE (07:33)
[2022-12-20] MEDS ORDERED: LIDOCAINE HCL/PF 1% SDV 5ML VIAL ONE (07:33)
[2022-12-20] MEDS ORDERED: POVIDONE-IODINE 5% OPHTHALMIC PREP 30 ML SOLUTION ONE (07:34)
[2022-12-20] MEDS ORDERED: MIDAZOLAM HCL 2 MG/2 ML SINGLE DOSE VIAL ONE (07:57)
[2022-12-20] MEDS ORDERED: TETRACAINE 0.5% OPHTH SOLN 2 ML BOTTLE OD ONE (07:58)
[2022-12-20] MEDS ORDERED: POVIDONE-IODINE 5% OPHTHALMIC PREP 30 ML SOLUTION OD ONE (08:01)
[2022-12-20] MEDS ORDERED: BSS (NA/CA/MG/K) BALANCED SALT SOLUTION OPHTH SOLN 15 ML BOTTLE IO ONE (08:09)
[2022-12-20] MEDS ORDERED: LIDOCAINE HCL 1% PRESERVATIVE FREE - 30ML VIAL IO ONE (08:10)
[2022-12-20] MEDS ORDERED: TRYPAN BLUE 0.5 ML DISP.SYRIN IO ONE (08:11)
[2022-12-20] MEDS ORDERED: CHONDROITIN SU A/HYALUR SOD 1 KIT IO ONE (08:11)
[2022-12-20] MEDS ORDERED: PHENYLEPHRINE/KETOROLAC 4 ML VIAL IO ONE (08:17)
[2022-12-20 08:54] VITALS: PULSE 80; TEMP 98.9
[2022-12-20 09:21] VITALS: BP 169/105; RESP 18
== END 2022-12-20 09:15 | disposition home or self-care (01) ==
LOC: JASU-SURG 04:15
PROVIDERS: ATTEND Ophthalmology
PROC: 08RJ3JZ Replacement of Right Lens with Synthetic Substitute, Percutaneous Approach (ICD-10-PCS; principal; 2022-12-20 08:00)
DX: H26.9 Unspecified cataract (principal)
CPT/HCPCS: J1097; V2632

== ENCOUNTER 2024-10-17 09:43 | Observation (INO) | payer OTHER ==
[2024-10-17 10:02] VITALS: BMI 25.8
[2024-10-17] MEDS ORDERED: ACETYLCYSTEINE 20% 200MG/ML 4 ML VIAL *FOR ORAL / INH USE ONLY ONE (10:42)
[2024-10-17] MEDS ORDERED: ALBUTEROL SO4 2.5/IPRATROPIUM 0.5 INH SOL 3 ML VIAL.NEB. NEB ONE (10:42)
[2024-10-17] MEDS ORDERED: methylPREDNISolone NA SUCC 125 MG/2 ML VIAL ONE (10:43)
[2024-10-17] MEDS: ALBUTEROL SO4 2.5/IPRATROPIUM 0.5 INH SOL 3 ML VIAL.NEB. NEB ONE (11:20)
[2024-10-17] MEDS: ACETYLCYSTEINE 20% 200MG/ML 30 ML VIAL *FOR ORAL / INH USE ONLY NEB ONE (11:20)
[2024-10-17] MEDS: methylPREDNISolone NA SUCC 125 MG/2 ML VIAL IVPUSH ONE (11:25)
[2024-10-17 11:47] LABS: VENOUS BASE EXCESS 0.3 mmol/L (-2-2); VENOUS O2 SATURATION 66.6 % (70-80); VENOUS PCO2 46.3 mmHg (38-52); VENOUS PH 7.369 (7.310-7.410)
[2024-10-17 11:50] LABS: BASO % 0.7 % (0-2.0); EOS % 2.5 % (0-4.5); HEMATOCRIT 39.7 % (35.4-49); HEMOGLOBIN 13.7 GM/dL (11.7-16.9); LYMPH % 20.7 % (8-40); MCH 29.9 pg (25.7-33.7); MCHC 34.4 g/dl (32.0-35.9); MEAN CELL VOLUME 86.8 fl (80-96); MEAN PLT VOLUME 8.1 fl (7.5-11.1); MONO % 7.9 % (3.8-10.2); NEUT % 68.2 % (42.8-82.8); PLATELET COUNT 323 10^3/uL (134-434); RBC 4.58 M/mm3 (4.00-5.60); RDW 14.6 % (11.9-15.9); WHITE BLOOD COUNT 8.4 K/mm3 (4.0-10.0)
[2024-10-17 12:06] LABS: POTASSIUM 3.9 mmol/L (3.5-5.1)
[2024-10-17 12:09] LABS: ALBUMIN 3.4 g/dl (3.4-5.0); BLOOD UREA NITROGEN 18.4 mg/dL (7-18)
[2024-10-17 12:13] LABS: BILIRUBIN,TOTAL 0.5 mg/dL (0.2-1)
[2024-10-17 12:14] LABS: TOT PROT 6.8 g/dl (6.4-8.2)
[2024-10-17 12:17] LABS: N-TERMINAL BNP 158.9 pg/ml (5-125)
[2024-10-17 13:50] LABS: HIV INTERPRETATION NEGATIVE (NEGATIVE)
[2024-10-17] MEDS: ALBUTEROL SO4 2.5/IPRATROPIUM 0.5 INH SOL 3 ML VIAL.NEB. NEB SCH ×2 (14:36→21:40)
[2024-10-17] MEDS ORDERED: ALBUTEROL SO4 HFA INHALER IH PRN (17:37)
[2024-10-17] MEDS ORDERED: ASPIRIN 81 MG CHEWABLE TABLETS ONE (18:23)
[2024-10-17] MEDS ORDERED: AZITHROMYCIN 500 MG TABLET ONE (18:23)
[2024-10-17] MEDS ORDERED: predniSONE 20 MG TABLET (UD) ONE (18:23)
[2024-10-17] MEDS: AZITHROMYCIN 250 MG TABLET PO SCH (18:40)
[2024-10-18] MEDS: MELATONIN 5 MG TABLETS PO ONE (06:02)
[2024-10-18] MEDS: ATORVASTATIN CA 20 MG TABLET (FP) PO SCH (09:33)
[2024-10-18] MEDS: amLODIPine BESYLATE 10 MG TABLET (FP) PO SCH (09:33)
[2024-10-18] MEDS: ASPIRIN COATED 81 MG TABLET.EC PO SCH (09:34)
[2024-10-18] MEDS: HYDROCHLOROTHIAZIDE 12.5 MG CAPSULE (FP) PO SCH (09:34)
[2024-10-18] MEDS: ENOXAPARIN NA (PORCINE) 40 MG/0.4 ML DISP.SYRIN SQ SCH (09:34)
[2024-10-18] MEDS: VALSARTAN 160 MG TABLET PO SCH (09:34)
[2024-10-18] MEDS: predniSONE 20 MG TABLET (UD) PO SCH (09:34)
[2024-10-18] MEDS ORDERED: PATIENT'S OWN MEDICATION (NON-FORMULARY) (Valsartan/Hydrochlorothiazide [Valsartan-Hctz 16 PO SCH (10:00)
[2024-10-18 10:59] LABS: BASO % 0.1 % (0-2.0); EOS % 0.1 % (0-4.5); HEMATOCRIT 39.9 % (35.4-49); HEMOGLOBIN 12.9 GM/dL (11.7-16.9); LYMPH % 7.9 % (8-40); MCH 28.7 pg (25.7-33.7); MCHC 32.4 g/dl (32.0-35.9); MEAN CELL VOLUME 88.4 fl (80-96); MEAN PLT VOLUME 8.3 fl (7.5-11.1); MONO % 6.9 % (3.8-10.2); PLATELET COUNT 346 10^3/uL (134-434); RBC 4.51 M/mm3 (4.00-5.60); RDW 14.6 % (11.9-15.9); WHITE BLOOD COUNT 13.9 K/mm3 (4.0-10.0)
[2024-10-18 11:27] LABS: POTASSIUM 3.8 mmol/L (3.5-5.1)
[2024-10-18 11:40] LABS: ALBUMIN 3.3 g/dl (3.4-5.0); CALCIUM 9.3 mg/dL (8.5-10.1)
[2024-10-18 11:41] LABS: BLOOD UREA NITROGEN 19.7 mg/dL (7-18); MAGNESIUM 1.9 mg/dL (1.8-2.4)
[2024-10-18 11:44] LABS: PHOSPHOROUS 3.5 mg/dL (2.5-4.9)
[2024-10-18 11:45] LABS: BILIRUBIN,TOTAL 0.4 mg/dL (0.2-1); TOT PROT 6.6 g/dl (6.4-8.2)
[2024-10-18 14:25] VITALS: PULSE 100
[2024-10-18 14:28] VITALS: BP 131/82; RESP 18; TEMP 97.9
== END 2024-10-18 16:15 | disposition home or self-care (01) ==
LOC: JER 09:43 → JERBED 15:57 → J5S 19:46
PROVIDERS: ADMIT Internal Medicine; ATTEND Internal Medicine
PROC: 3E0F7GC Introduction of Other Therapeutic Substance into Respiratory Tract, Via Natural or Artificial Opening (ICD-10-PCS; principal; 2024-10-17)
PROC: 3E023GC Introduction of Other Therapeutic Substance into Muscle, Percutaneous Approach (ICD-10-PCS; 2024-10-17)
PROC: 3E033GC Introduction of Other Therapeutic Substance into Peripheral Vein, Percutaneous Approach (ICD-10-PCS; 2024-10-17)
DX: J44.1 Chronic obstructive pulmonary disease with (acute) exacerbation (principal); C34.90 Malignant neoplasm of unspecified part of unspecified bronchus or lung; I10 Essential (primary) hypertension; J43.9 Emphysema, unspecified; F17.200 Nicotine dependence, unspecified, uncomplicated; J06.9 Acute upper respiratory infection, unspecified; R07.89 Other chest pain; Z98.890 Other specified postprocedural states; Z90.2 Acquired absence of lung [part of]; R53.81 Other malaise
CPT/HCPCS: 0241U-QW; 36415; 71046-TC-FY; 80053; 82803; 83605; 83735; 83880; 84100; 84484; 85025; 85027; 86803; 87389; 94640; 94761; 96372; 96374; 99285-25; G0378